=== PATIENT | male | born 1990 | race Caucasian/White ===

== ENCOUNTER 2019-12-11 10:41 | Emergency (ER) | payer MEDICAID ==
[~2019-12-11] VITALS: Ht 185.4 cm; Wt 81.0 kg
[~2019-12-11 10:41] MED LIST: ARIP15TA8 PO; HYDR-3686 PO; NICO-668 BC; NICO-687 TD; NO HOME MEDS
[2019-12-11 12:42] LABS: CLARITY,URINE CLOUDY (Clear); COLOR,URINE YELLOW (Yellow); GLUCOSE, URINE NEGATIVE (Neg); KETONES,URINE TRACE mg/dl (Neg); LEUKOCYTE ESTERASE ,URINE NEGATIVE (Neg); NITRITES, URINE NEGATIVE (Neg); OCCULT BLOOD,URINE TRACE-INTACT (Neg); PROTEIN,URINE TRACE mg/dl (Neg)
[2019-12-11 12:42] LABS: BASOPHILS # (AUTO) 0.1 X10'3 (0-0.2); EOSINOPHILS # (AUTO) 0.1 X10'3 (0-0.9); MEAN PLATELET VOLUME 7.2 FL (7.4-10.4)
[2019-12-11 12:43] LABS: BASOPHILS % (AUTO) 1.1 % (0-1); EOSINOPHILS % (AUTO) 0.9 % (0-6); HEMATOCRIT 43.5 % (42.0-52.0); HEMOGLOBIN 14.4 g/dl (14.0-17.9); LYMPHOCYTES # (AUTO) 3.3 X10'3 (1.1-4.8); LYMPHOCYTES % (AUTO) 27.6 % (21-51); MEAN CORPUSCULAR HGB CONC 33.1 g/dL (33.0-36.5); MEAN CORPUSCULAR VOLUME 93.7 FL (78-98); MONOCYTES # (AUTO) 0.6 X10'3 (0-0.9); MONOCYTES % (AUTO) 4.6 % (2-12); NEUTROPHILS # (AUTO) 7.9 X10'3 (1.8-7.7); NEUTROPHILS % (AUTO) 65.8 % (42-75); PLATELET COUNT 348 X10'3 (140-440); RED BLOOD COUNT 4.65 X10'6 (4.70-6.10)
[2019-12-11 12:52] LABS: UA COLLECTION TYPE VOIDED
[2019-12-11 12:55] LABS: URINE AMPHETAMINE SCREEN NEGATIVE (Neg); URINE BARBITUATE SCREEN NEGATIVE (Neg); URINE BENZODIAZEPINES SCREEN NEGATIVE (Neg); URINE CANNABINOID SCREEN POSITIVE (Neg); URINE COCAINE SCREEN NEGATIVE (Neg); URINE METHADONE SCREEN NEGATIVE (Neg); URINE OPIATE SCREEN NEGATIVE (Neg); URINE PHENCYCLIDINE SCREEN NEGATIVE (Neg)
[2019-12-11 12:58] LABS: ALANINE AMINOTRANSFERASE 97 U/L (12-78); ALBUMIN/GLOBULIN RATIO 1.3 (1.1-1.5); ALKALINE PHOSPHATASE 67 IU/L (46-116); ANION GAP 6 (8-16); ASPARTATE AMINO TRANSFERASE 42 U/L (10-37); BLOOD UREA NITROGEN 13 MG/DL (7-18); BUN/CREATININE RATIO 11.5 (5.4-32.0); CALCIUM 8.8 MG/DL (8.5-10.1); CHLORIDE 108 MMOL/L (99-107); CREATININE 1.13 MG/DL (0.60-1.10); GLUCOSE 124 MG/DL (70-104); POTASSIUM 3.8 MMOL/L (3.5-5.1); SODIUM 142 MMOL/L (135-145); TOTAL CARBON DIOXIDE 28.2 MMOL/L (24-32); eGFR 77 ML/MIN
[2019-12-11 13:03] LABS: AMORPHOUS PHOSPHATES 3+; BACTERIA,URINE NONE SEEN /HPF (Neg); MUCUS STRANDS FEW /LPF (Neg); SQUAMOUS EPITHELIAL CELL,UR FEW /LPF (FEW); WBC,URINE 0-4 /HPF (0-4)
[2019-12-11 13:05] LABS: ETHANOL < 0.010 GM/DL (0.0-0.010)
--- NOTE | 2019-12-11 14:10 | NUR ---
PACKET FAXED TO [facility].
--- NOTE | 2019-12-11 14:19 | NUR ---
PT AWAKE AND COLORING NO NEEDS AT THIS TIME
[2019-12-11] MEDS ORDERED: NICO-687 TD (15:52)
[2019-12-11] MEDS ORDERED: NICO-668 MM (15:52)
[2019-12-11] MEDS ORDERED: ARIP15TA8 PO (15:52)
[2019-12-11] MEDS ORDERED: HYDR-3686 PO (15:52)
--- NOTE | 2019-12-11 16:00 | NUR ---
PT REQUESTING HIS ANXIETY MEDS. PT STATED FIDELINA THE WAS NOT TAKING ANY HOME MEDS. PT STATES HE WAS TAKING XANAX THAT WAS FILLED AT [facility] IN [place]. PER [facility] PT HAS NOT HAD ANY RX FILLED. PT INFORMED OF THIS HE THEN STATED WHEN HE WAS UPSTAIRS HE WAS ON "XANAX OR MAYBE ATIVAN" INQUIRED TO WHEN HE WAS UPSTAIRS HIS LAST VISIT WAS 2016. PT STATES HE WAS DC FROM [facility] [place] [facility] 2 DAYS AGO. PT STATES HE WAS TRANSFERED FROM [facility] TO [facility]. PT STATES HE HAS NOT TAKEN ANY MEDS SINCE BEING DCD AND DID NOT GET ANY MEDS FILLED. CALLED [facility] AND THEY DO NOT HAVE A RECORD OF HIS DC MEDS. ABLE TO GET LIST FROM PHARM. CORRECT MED REC SIGNED BY DR COLORADO AND FAXED TO PHARM.
--- NOTE | 2019-12-11 16:11 | NUR ---
PER [facility] PT HAD ABILIFY 400MG INJECTION 12/05 AND WAS PUT IN 15MG PO X 2 WEEKS.
--- NOTE | 2019-12-11 16:26 | NUR ---
CONCEPCION FROM [facility] AT [facility]
[2019-12-11] MEDS ORDERED: acetaminophen 325mg tablet PO ONE (17:40)
[2019-12-11] MEDS: hydrOXYzine 25 MG tablet PO PRN (17:55)
--- NOTE | 2019-12-11 18:30 | NUR ---
Pt sat up to eat dinner. No s/s of distress noted
--- NOTE | 2019-12-11 19:30 | NUR ---
Pt appears to be resting comfortably. No apparent s/s of distress noted
--- NOTE | 2019-12-11 20:17 | NUR ---
Pt appears to be resting comfortably. No apparent s/s of distress noted
--- NOTE | 2019-12-11 21:15 | NUR ---
Pt appears to be resting comfortably. No apparent s/s of distress
--- NOTE | 2019-12-11 22:10 | NUR ---
Pt appears to be resting comfortably. No apparent s/s of distress
--- NOTE | 2019-12-11 23:05 | NUR ---
Pt appears to be resting comfortably. No apparent s/s of distress
--- NOTE | 2019-12-12 | NUR ---
Received report and assumed pt care. Pt resting quietly, respirations normal, s/s of distress.
--- NOTE | 2019-12-12 01:00 | NUR ---
Pt resting quietly, respirations normal, s/s of distress.
--- NOTE | 2019-12-12 02:41 | NUR ---
Pt resting quietly, respirations normal, s/s of distress.
--- NOTE | 2019-12-12 03:30 | NUR ---
Pt resting quietly, respirations normal, s/s of distress.
--- NOTE | 2019-12-12 04:29 | NUR ---
Pt resting quietly, respirations normal, s/s of distress.
[2019-12-12 05:38] VITALS: BP 110/68
[2019-12-12] MEDS: hydrOXYzine 25 MG tablet PO PRN ×2 (06:36→10:58)
[2019-12-12] MEDS ORDERED: ARIPIPRAZOLE 15 MG TABLET PO SCH (08:00)
[2019-12-12] MEDS ORDERED: nicotine 21mg patch - 24 hr TD SCH (08:00)
--- NOTE | 2019-12-12 11:20 | NUR ---
Krystin from [facility] inpatient facility called and patient is being acceoted to facility by Dr. Serrano. [phone]
[2019-12-12] MEDS ORDERED: acetaminophen 325mg tablet PO ONE (13:30)
== END 2019-12-12 14:24 ==
LOC: ER 10:42
DX: R45.851 Suicidal ideations (principal); J45.909 Unspecified asthma, uncomplicated; F41.9 Anxiety disorder, unspecified; F15.90 Other stimulant use, unspecified, uncomplicated; Z98.890 Other specified postprocedural states; Z88.0 Allergy status to penicillin; Z88.6 Allergy status to analgesic agent
CPT/HCPCS: 36415; 80053; 80305; 80320; 81001; 84443; 85025; 99285; Q0177

== ENCOUNTER 2019-12-29 15:46 | Emergency (ER) | payer MEDICAID ==
[~2019-12-29] VITALS: Ht 185.4 cm; Wt 91.3 kg
[~2019-12-29 15:46] MED LIST changes: -NICO-668 BC; +NICO-668 MM; -NO HOME MEDS
[2019-12-29 16:16] VITALS: BP 133/70
[2019-12-29 17:57] LABS: BASOPHILS # (AUTO) 0.2 X10'3 (0-0.2); BASOPHILS % (AUTO) 1.2 % (0-1); EOSINOPHILS # (AUTO) 0.3 X10'3 (0-0.9); EOSINOPHILS % (AUTO) 2.1 % (0-6); HEMATOCRIT 44.2 % (42.0-52.0); HEMOGLOBIN 14.6 g/dl (14.0-17.9); LYMPHOCYTES # (AUTO) 2.9 X10'3 (1.1-4.8); LYMPHOCYTES % (AUTO) 22.3 % (21-51); MEAN CORPUSCULAR HEMOGLOBIN 31.7 PG (27.0-31.0); MEAN CORPUSCULAR HGB CONC 33.1 g/dL (33.0-36.5); MEAN CORPUSCULAR VOLUME 95.9 FL (78-98); MEAN PLATELET VOLUME 7.6 FL (7.4-10.4); MONOCYTES # (AUTO) 1.4 X10'3 (0-0.9); MONOCYTES % (AUTO) 10.3 % (2-12); NEUTROPHILS # (AUTO) 8.4 X10'3 (1.8-7.7); NEUTROPHILS % (AUTO) 64.1 % (42-75); PLATELET COUNT 387 X10'3 (140-440); RED BLOOD COUNT 4.61 X10'6 (4.70-6.10); RED CELL DISTRIBUTION WIDTH 15.3 % (11.5-14.5); WHITE BLOOD COUNT 13.2 X10'3 (4.5-11.0)
[2019-12-29 18:32] LABS: ALANINE AMINOTRANSFERASE 123 U/L (12-78); ALBUMIN 3.9 G/DL (3.4-5.0); ALBUMIN/GLOBULIN RATIO 1.1 (1.1-1.5); ALKALINE PHOSPHATASE 63 IU/L (46-116); ANION GAP 8 (8-16); ASPARTATE AMINO TRANSFERASE 51 U/L (10-37); BILIRUBIN,TOTAL 0.4 MG/DL (0.1-1.0); BLOOD UREA NITROGEN 8 MG/DL (7-18); BUN/CREATININE RATIO 9.6 (5.4-32.0); CHLORIDE 100 MMOL/L (99-107); CREATININE 0.83 MG/DL (0.60-1.10); GLUCOSE 114 MG/DL (70-104); POTASSIUM 4.1 MMOL/L (3.5-5.1); SODIUM 139 MMOL/L (135-145); TOTAL CARBON DIOXIDE 31.3 MMOL/L (24-32); TOTAL PROTEIN 7.4 G/DL (6.4-8.2); eGFR > 90 ML/MIN
== END 2019-12-29 18:31 | disposition home or self-care (01) ==
LOC: ER 15:46
DX: R11.0 Nausea (principal); T42.6X5A Adverse effect of other antiepileptic and sedative-hypnotic drugs, initial encounter; R68.83 Chills (without fever); R19.7 Diarrhea, unspecified; Z20.828 Contact with and (suspected) exposure to other viral communicable diseases; J45.909 Unspecified asthma, uncomplicated; F15.90 Other stimulant use, unspecified, uncomplicated; F41.9 Anxiety disorder, unspecified; Z98.890 Other specified postprocedural states; Z88.0 Allergy status to penicillin; Z88.6 Allergy status to analgesic agent; Z79.899 Other long term (current) drug therapy; Y92.89 Other specified places as the place of occurrence of the external cause
CPT/HCPCS: 36415; 80053; 85025; 87635; 99283

== ENCOUNTER 2020-04-30 08:18 | Emergency (ER) | payer MEDICAID ==
[~2020-04-30] VITALS: Ht 185.4 cm; Wt 92.3 kg
[2020-04-30] MEDS ORDERED: hydrOXYzine 25 MG tablet PO ONE ×2 (09:20→15:35)
[2020-04-30 09:37] LABS: BASOPHILS # (AUTO) 0.1 X10'3 (0-0.2); BASOPHILS % (AUTO) 0.5 % (0-1); EOSINOPHILS # (AUTO) 0.1 X10'3 (0-0.9); EOSINOPHILS % (AUTO) 0.5 % (0-6); HEMATOCRIT 45.2 % (42.0-52.0); HEMOGLOBIN 15.1 g/dl (14.0-17.9); LYMPHOCYTES # (AUTO) 2.1 X10'3 (1.1-4.8); LYMPHOCYTES % (AUTO) 20.4 % (21-51); MEAN CORPUSCULAR HEMOGLOBIN 31.1 PG (27.0-31.0); MEAN CORPUSCULAR HGB CONC 33.4 g/dL (33.0-36.5); MONOCYTES # (AUTO) 0.6 X10'3 (0-0.9); MONOCYTES % (AUTO) 5.6 % (2-12); NEUTROPHILS # (AUTO) 7.4 X10'3 (1.8-7.7); PLATELET COUNT 416 X10'3 (140-440); RED BLOOD COUNT 4.86 X10'6 (4.70-6.10); RED CELL DISTRIBUTION WIDTH 14.2 % (11.5-14.5); WHITE BLOOD COUNT 10.2 X10'3 (4.5-11.0)
--- NOTE | 2020-04-30 09:40 | NUR ---
PT NOW STATING HE IS SUICIDAL, NOTIFY PROVIDER. PT CHANGED INTO GREEN GOWN, BELONGINGS LOGGED AND TAKEN OUT OF ROOM. BLOOD DRAWN AND URINE COLLECTED.
[2020-04-30 09:50] LABS: ALANINE AMINOTRANSFERASE 72 U/L (12-78); ALBUMIN 3.7 G/DL (3.4-5.0); ALBUMIN/GLOBULIN RATIO 1.1 (1.1-1.5); ALKALINE PHOSPHATASE 83 IU/L (46-116); ANION GAP 8 (8-16); ASPARTATE AMINO TRANSFERASE 27 U/L (10-37); BILIRUBIN,TOTAL 0.6 MG/DL (0.1-1.0); BLOOD UREA NITROGEN 7 MG/DL (7-18); BUN/CREATININE RATIO 7.7 (5.4-32.0); CHLORIDE 107 MMOL/L (99-107); CREATININE 0.91 MG/DL (0.60-1.10); GLUCOSE 119 MG/DL (70-104); POTASSIUM 4.2 MMOL/L (3.5-5.1); SODIUM 142 MMOL/L (135-145); TOTAL CARBON DIOXIDE 26.9 MMOL/L (24-32); TOTAL PROTEIN 7.1 G/DL (6.4-8.2); eGFR > 90 ML/MIN
[2020-04-30 10:03] LABS: URINE AMPHETAMINE SCREEN NEGATIVE (Neg); URINE BARBITUATE SCREEN NEGATIVE (Neg); URINE BENZODIAZEPINES SCREEN NEGATIVE (Neg); URINE CANNABINOID SCREEN POSITIVE (Neg); URINE COCAINE SCREEN NEGATIVE (Neg); URINE METHADONE SCREEN NEGATIVE (Neg); URINE OPIATE SCREEN NEGATIVE (Neg); URINE PHENCYCLIDINE SCREEN NEGATIVE (Neg)
[2020-04-30] MEDS ORDERED: diphenhydrAMINE 50 mg/ml inj IM ONE (10:35)
[2020-04-30] MEDS ORDERED: ARIPIPRAZOLE 10 MG TABLET PO SCH (10:35)
[2020-04-30] MEDS ORDERED: ARIPIPRAZOLE 10 MG TABLET PO ONE (10:35)
--- NOTE | 2020-04-30 12:59 | NUR ---
PACKET SENT TO [facility] AT [facility].
--- NOTE | 2020-04-30 14:37 | NUR ---
PT MOVED FROM MAIN ED TO OVERFLOW BED 21. PT IS CALM AND COOPERATIVE. WILL CONT TO MONITOR.
[2020-04-30] MEDS ORDERED: DIVA500T2 PO (14:41)
[2020-04-30] MEDS ORDERED: PROP10TA10 PO (14:43)
--- NOTE | 2020-04-30 16:05 | NUR ---
PT NEEDING SOMETHING FOR ANXIETY, GIVEN ATARAX AND NOW PT IS SLEEPING AND DOES NOT LOOK TO BE IN ANY DISTRESS. WILL MONITOR.
--- NOTE | 2020-04-30 17:14 | NUR ---
PT CONTINUES TO REST IN BED WITH EYES CLOSED. PT DOES NOT SEEM TO BE IN ANY DISCOMFORT. WILL CONT TO MONITOR.
--- NOTE | 2020-04-30 19:00 | NUR ---
Pt resting quietly, respirations normal, no s/s of distress.
--- NOTE | 2020-04-30 20:00 | NUR ---
Pt resting quietly, respirations normal, no s/s of distress.
--- NOTE | 2020-04-30 21:00 | NUR ---
Pt resting quietly, respirations normal, no s/s of distress.
--- NOTE | 2020-04-30 23:00 | NUR ---
Pt resting quietly, respirations normal, no s/s of distress.
--- NOTE | 2020-05-01 01:09 | NUR ---
Pt resting quietly, respirations normal, no s/s of distress.
[2020-05-01 05:36] VITALS: BP 119/71
--- NOTE | 2020-05-01 06:26 | NUR ---
Patient sleeping on his right side. No distress observed. Continue to monitor.
[2020-05-01] MEDS ORDERED: hydrOXYzine 25 MG tablet PO PRN (06:50)
--- NOTE | 2020-05-01 08:05 | NUR ---
Patient eating breakfast. No distress observed. Continue to monitor.
[2020-05-01] MEDS ORDERED: CLON0.5T23 PO (08:51)
[2020-05-01] MEDS ORDERED: OLAN5TAB29 PO (08:51)
[2020-05-01] MEDS ORDERED: OLAN10TA19 PO (08:53)
--- NOTE | 2020-05-01 09:00 | NUR ---
Patient angry and punched the bed because he wants to see somebody and leave. [facility], was in the area and and evaluating patient. Continue to monitor.
[2020-05-01] MEDS ORDERED: PROP10TA10 PO (09:06)
[2020-05-01] MEDS ORDERED: ARIP15TA3 PO (09:06)
--- NOTE | 2020-05-01 09:10 | NUR ---
[facility], evaluating patient. Continue to monitor.
[2020-05-01] MEDS ORDERED: divalproex sodium 500mg tablet.DR PO SCH (09:28)
[2020-05-01] MEDS ORDERED: propranolol 10mg tablet PO SCH (09:28)
[2020-05-01] MEDS ORDERED: ARIPIPRAZOLE 15 MG TABLET PO SCH (21:00)
== END 2020-05-01 09:55 | disposition home or self-care (01) ==
LOC: ER 08:19
DX: R45.851 Suicidal ideations (principal); Z20.828 Contact with and (suspected) exposure to other viral communicable diseases; G25.71 Drug induced akathisia; J45.909 Unspecified asthma, uncomplicated; F41.9 Anxiety disorder, unspecified; F15.90 Other stimulant use, unspecified, uncomplicated; Z98.890 Other specified postprocedural states; Z88.0 Allergy status to penicillin; Z88.8 Allergy status to other drugs, medicaments and biological substances; Z79.899 Other long term (current) drug therapy
CPT/HCPCS: 36415; 80053; 80305; 85025; 87635; 96372; 99285; C9803; J1200; Q0177

== ENCOUNTER 2020-05-03 01:44 | Emergency (ER) | payer MEDICAID ==
[~2020-05-03 01:44] MED LIST changes: +ARIP15TA3 PO; -ARIP15TA8 PO; +DIVA500T2 PO; -HYDR-3686 PO; -NICO-668 MM; -NICO-687 TD; +PROP10TA10 PO
== END 2020-05-03 02:07 | disposition left against medical advice (07) ==
LOC: ER 01:45
DX: G47.00 Insomnia, unspecified (principal); Z53.21 Procedure and treatment not carried out due to patient leaving prior to being seen by health care provider

== ENCOUNTER 2021-07-20 09:50 | Inpatient (IN) | payer MEDICAID ==
[~2021-07-20] VITALS: Ht 188 cm; Wt 88.0 kg
[2021-07-20 19:50] VITALS: BP 129/93
[2021-07-20] MEDS ORDERED: quetiapine 100mg tablet PO PRN (21:10)
[2021-07-20] MEDS ORDERED: mag hydrox/Alum hydrox/simeth 30ml oral suspension PO PRN (21:25)
[2021-07-20] MEDS ORDERED: magnesium hydroxide 30ml (MOM) UD suspension PO PRN (21:25)
[2021-07-20] MEDS ORDERED: acetaminophen 325mg tablet PO PRN ×2 (21:25)
[2021-07-20] MEDS ORDERED: loperamide 2mg capsule PO PRN (21:25)
[2021-07-21] MEDS ORDERED: LORA2TAB96 PO (01:43)
[2021-07-21] MEDS ORDERED: QUET-1 PO (01:44)
[2021-07-21] MEDS ORDERED: ARIP400S3 IM (01:47)
--- NOTE | 2021-07-21 02:17 | NUR ---
EXECUTIVE RELATIONS SPECIALIST NOTE: LEGAL HOLD: 5150 for DTS REASON FOR ADMIT: Client reported suicidal ideation. Client reported that he wanted to hang himself. He has had two prior suicide attempts by hanging. The first attempt was at age 16 yo. The second attempt was at age 26 yo. Client has a hx of heroin abuse. Reported that he stopped 7 months ago. THIS SHIFT: Client is pleasant and cooperative. His affect is blunted and he is very depressed. Client showered, had snack, and was cooperative with admission. He arrived on the unit at 19:50 accompanied by Rosy Jones. Requested 100 mg Seroquel Tab PO and went to bed.
[2021-07-21 08:00] VITALS: BP 137/81
[2021-07-21 08:10] LABS: HEMOGLOBIN A1C 5.6 % (4.5-6.2)
[2021-07-21 08:18] LABS: CHOL/HDL RATIO 2.9 (0.00-4.99); CHOLESTEROL 123 MG/DL (0-200); HDL CHOLESTEROL 42 MG/DL (35-60); LDL CHOLESTEROL 91 MG/DL (50-100); TRIGLYCERIDES 28 MG/DL (20-135)
[2021-07-21] MEDS: LORazepam 1 MG tablet PO SCH ×2 (09:03→20:12)
[2021-07-21] MEDS: nicotine 21mg patch - 24 hr TD SCH (09:04)
--- NOTE | 2021-07-21 14:22 | NUR ---
Nursing Progress Note: Legal hold: 5150 Client on involuntary status for DTS/DTO Report received from nurse with use of SBAR: Jodi Sol RN Why are they here: Client reported suicidal ideation. Client reported that he wanted to hang himself. He has had two prior suicide attempts by hanging. The first attempt was at age 16 yo. The second attempt was at age 26 yo. Client has a hx of heroin abuse. Reported that he stopped 7 months ago. Assessment What has happened this shift: Received pt. sleeping in bed at the beginning of the shift, he was awoken to attend breakfast in the Group Room, and afterwards returned back to bed. Pt. continued to isolate here throughout the shift, getting up to attend meals only. 1:1 was completed at bedside, pt. presents as cooperative, fatigued, and guarded. He reports ongoing S/I, however denies any current plan. When questioned regarding A/V/MANNING, pt. states, "I see things that aren't there and they tell me to hurt myself." Pt. remained in bed throughout much of the shift, napping intermittently. He reports he takes Suboxone 8--2mg BID, and this was endorsed to Dr. Case who may continue this medication. S/I, H/I: Pt. reports ongoing S/I, however denies any plan A/VH: Pt. reports A/V/MANNING, and states, "I see things that aren't there and they tell me to hurt myself." Sleep: Sleep hours are 8.5, and pt. naps throughout much of the shift ADL's: Pt. requires some direction and encouragement Group attendance: No Were meds taken: Yes Any med S/E: None Mental Status Exam Appearance: Hair and clothing are disheveled r/t laying in bed Eye contact: Moderate Behavior: Cooperative, fatigued, guarded, and isolative Speech: Soft, responds to direct questions with a minimal response Mood: Guarded Affect: Constricted Thought process: Poverty of thought Thought Content: A/V/MANNING and depression Cognition: A&O X4 Insight: Poor Judgment: Poor Interventions PRN's used: None Therapeutic interventions: Introduced self and established rapport, maintained a safe and supportive environment, ensured contract for safety, provided clear and simple instructions, attempted to orient to reality, and maintained Q 15min safety checks. Restraints/seclusion/emergency medication: N/A Justification of Continued Inpatient Treatment: Pt. requires interruption of current crisis, medication adjustments, and a safe and supportive environment.
[2021-07-21 19:37] VITALS: BP 119/77
[2021-07-21] MEDS ORDERED: QUEtiapine 25mg tablet PO PRN (21:25)
--- NOTE | 2021-07-22 04:12 | NUR ---
Nursing Progress Note: Legal hold: 5150 Client on involuntary status for DTS/DTO Report received from nurse with use of SBAR: ZAIRA Thompson Why are they here: Client reported suicidal ideation. Client reported that he wanted to hang himself. He has had two prior suicide attempts by hanging. The first attempt was at age 16 yo. The second attempt was at age 26 yo. Client has a hx of heroin abuse. Reported that he stopped 7 months ago. Assessment What has happened this shift: Received pt. sleeping in bed at the beginning of the shift. Patient stayed in bed until nurse attempted to preform 1:1. Patient kept staring off into the distance and gave minimal responses. Patient didn't leave room until snack time. Patient didn't socialize with others and was observed sitting in corner of community room. Patient took night medications without issue and went back to bed. S/I, H/I: Pt. reports ongoing S/I, however denies any plan A/VH: Denies Sleep: See sleep assessment ADL's: Pt. requires some direction and encouragement Group attendance: No Were meds taken: Yes Any med S/E: None Mental Status Exam Appearance: Clean dressed in green unit scrubs Eye contact:Good Behavior: Cooperative, fatigued, guarded, and isolative Speech: Soft, responds to direct questions with a minimal response Mood: fatigued Affect: Constricted Thought process: Poverty of thought Thought Content: A/V/MANNING and depression Cognition: A&O X4 Insight: Poor Judgment: Poor Interventions PRN's used: None Therapeutic interventions: Introduced self and established rapport, maintained a safe and supportive environment, ensured contract for safety, provided clear and simple instructions, attempted to orient to reality, and maintained Q 15min safety checks. Restraints/seclusion/emergency medication: N/A Justification of Continued Inpatient Treatment: Pt. requires interruption of current crisis, medication adjustments, and a safe and supportive environment.
[2021-07-22 08:00] VITALS: BP 122/87
[2021-07-22] MEDS ORDERED: buPROPion 75mg tablet PO SCH (08:00)
[2021-07-22] MEDS: LORazepam 1 MG tablet PO SCH ×2 (08:53→19:47)
[2021-07-22] MEDS: nicotine 21mg patch - 24 hr TD SCH (08:54)
[2021-07-22] MEDS: buprenorphine/naloxone 2-0.5mg sublingual tablet SL SCH ×2 (08:54→19:47)
--- NOTE | 2021-07-22 14:58 | NUR ---
Nursing Progress Note: Legal hold: 5150 Client on involuntary status for DTS/DTO Report received from nurse with use of SBAR: Jodi Sol RN Why are they here: Client reported suicidal ideation. Client reported that he wanted to hang himself. He has had two prior suicide attempts by hanging. The first attempt was at age 16 yo. The second attempt was at age 26 yo. Client has a hx of heroin abuse. Reported that he stopped 7 months ago. Assessment What has happened this shift: Received pt. sleeping in bed at the beginning of the shift, he was awoken to attend breakfast in the Group Room, and again afterwards returned back to bed. Pt. continued to isolate here throughout the shift, getting up only to attend meals. 1:1 was completed at bedside, pt. presents as depressed, anxious, and hopeless. His eye contact is moderate, and he looks away in what appears to be a nervous manner at intervals. Pt. continues to respond minimally to direct questions only. He reports ongoing S/I with a plan to hang himself, however is able to contract for safety while on the unit. Pt. also reports ongoing command A/MANNING and V/H. When questioned further regarding these V/MANNING, pt. states, "I see people that aren't supposed to be there." This marine underwriter provided positive encouragement and encouraged pt. to participate on the unit, and he reported contentment. However, pt. continued to isolate, napping throughout the day. S/I, H/I: Pt. reports ongoing S/I with a plan to hang himself A/VH: Pt. reports ongoing A/V/MANNING and command A/MANNING Sleep: Sleep hours are 6.75, and pt. naps throughout much of the shift ADL's: Pt. requires some direction and encouragement Group attendance: No Were meds taken: Yes Any med S/E: None Mental Status Exam Appearance: Hair and clothing are disheveled r/t laying in bed Eye contact: Moderate, looks away nervously at frequent intervals Behavior: Cooperative, fatigued, guarded, hopeless, and isolative Speech: Soft, responds to direct questions with a minimal response Mood: Guarded Affect: Constricted Thought process: Poverty of thought Thought Content: A/V/MANNING and depression Cognition: A&O X4 Insight: Poor Judgment: Poor Interventions PRN's used: None Therapeutic interventions: Maintained a safe and supportive environment, ensured contract for safety, provided clear and simple instructions, attempted to orient to reality, encouraged participation on the unit and performance of ADLs, provided active listening and positive encouragement, and maintained Q 15min safety checks. Restraints/seclusion/emergency medication: N/A Justification of Continued Inpatient Treatment: Per Dr. Case, pt. continues to require medication adjustments and a safe and supportive environment.
[2021-07-22] MEDS: traZODone 50mg tablet PO SCH (19:47)
[2021-07-22 19:52] VITALS: BP 118/82
--- NOTE | 2021-07-23 02:29 | NUR ---
Nursing Progress Note: Legal hold: 5150 Client on involuntary status for DTS/DTO Report received from nurse with use of SBAR: ZAIRA Thompson Why are they here: Client reported suicidal ideation. Client reported that he wanted to hang himself. He has had two prior suicide attempts by hanging. The first attempt was at age 16 yo. The second attempt was at age 26 yo. Client has a hx of heroin abuse. Reported that he stopped 7 months ago. Assessment What has happened this shift: Received pt. sleeping in bed at the beginning of the shift. Woke pt up to give medications and pt agreeable to assessment. Pt denies S/I, H/I, A/VH. Pt will occasionally pace the hallways. Pt returned to room to sleep S/I, H/I: denies A/VH: denies Sleep: will tally at the end of shift ADL's: Pt. requires some direction and encouragement Group attendance: No Were meds taken: Yes Any med S/E: None Mental Status Exam Appearance: Hair and clothing are disheveled r/t laying in bed Eye contact: Moderate, looks away nervously at frequent intervals Behavior: Cooperative, fatigued, guarded, hopeless, and isolative Speech: Soft, responds to direct questions with a minimal response Mood: Guarded Affect: Constricted Thought process: Poverty of thought Thought Content: A/V/MANNING and depression Cognition: A&O X4 Insight: Poor Judgment: Poor Interventions PRN's used: None Therapeutic interventions: Maintained a safe and supportive environment, ensured contract for safety, provided clear and simple instructions, attempted to orient to reality, encouraged participation on the unit and performance of ADLs, provided active listening and positive encouragement, and maintained Q 15min safety checks. Restraints/seclusion/emergency medication: N/A Justification of Continued Inpatient Treatment: Per Dr. Case, pt. continues to require medication adjustments and a safe and supportive environment.
[2021-07-23] MEDS ORDERED: buprenorphine/naloxone 8mg/2mg SL tablet SL PRN (07:05)
[2021-07-23 07:29] VITALS: BP 115/59
[2021-07-23] MEDS: buPROPion 75mg tablet PO SCH ×2 (07:40→12:36)
[2021-07-23] MEDS: LORazepam 1 MG tablet PO SCH ×2 (07:41→20:21)
[2021-07-23] MEDS: nicotine 21mg patch - 24 hr TD SCH (08:00)
[2021-07-23] MEDS ORDERED: buprenorphine/naloxone 8MG-2MG SUBlingual film SL ONE (09:00)
--- NOTE | 2021-07-23 12:33 | NUR ---
Initial: Pt admitted w/ suicidal ideations per EMR. Currently on Regular diet w/ mostly 100% intake of meals meeting est nutrient needs at this time. LBM 07/22 w/ PRN bowel care available. No nutrition intervention implemented at this time, will continue to monitor. Recs: 1. Continue Regular diet as tolerated 2. Bowel care per rx 3. Weekly wts Addendum: 07/23/21 at [address] Amended: Links added.
--- NOTE | 2021-07-23 18:01 | NUR ---
Nursing Progress Note: Legal hold: 5150 Client on involuntary status for DTS/DTO Report received from nurse with use of SBAR: Jodi Sol RN Why are they here: Client reported suicidal ideation. Client reported that he wanted to hang himself. He has had two prior suicide attempts by hanging. The first attempt was at age 16 yo. The second attempt was at age 26 yo. Client has a hx of heroin abuse. Reported that he stopped 7 months ago. Assessment What has happened this shift: RN received pt. asleep in bed at start of shift. Pt. awoke for breakfast and took all medications and went back to sleep. 1:1 done at bedside, pt. reports some anxiety. Pt. reports hearing voices telling him to kill himself and seeing people talking to him who disappear. Pt. isolated to his room most of the day and napped, coming out of his room only to eat. S/I, H/I: Denies A/VH: Pt. Reports command hallucinations telling him to kill himself. Sleep: Sleep hours are 8, and pt. naps throughout much of the shift ADL's: Independent Group attendance: NA Were meds taken: Yes Any med S/E: Denies. None observed Mental Status Exam Appearance: Disheveled but clean. Wearing green scrubs. Eye contact: WNL Behavior: Cooperative, fatigued, guarded, and isolative Speech: WNL Mood: Anxious, depressed. Affect: Constricted Thought process: Poverty of thought. Thought Content: Circumstantial. Cognition: A&O X4 Insight: Poor Judgment: Poor Interventions PRN's used: None Therapeutic interventions: Maintained a safe and supportive environment, ensured contract for safety, provided clear and simple instructions, attempted to orient to reality, encouraged participation on the unit and performance of ADLs, provided active listening and positive encouragement, and maintained Q 15min safety checks. Restraints/seclusion/emergency medication: N/A Justification of Continued Inpatient Treatment: Per Dr. Case, pt. continues to require medication adjustments and a safe and supportive environment.
[2021-07-23] MEDS: traZODone 50mg tablet PO SCH (20:21)
[2021-07-23] MEDS: buprenorphine/naloxone 8MG-2MG SUBlingual film SL SCH (20:21)
[2021-07-23 20:42] VITALS: BP 113/76
--- NOTE | 2021-07-24 01:04 | NUR ---
Nursing Progress Note: Legal hold: 5250 Client on involuntary status for DTS/DTO Report received from NINA Castaneda with use of SBAR. Why are they here: Client reported suicidal ideation and that he wanted to hang himself. He has had two prior suicide attempts by hanging. The first attempt was at age 16 yo. The second attempt was at age 26 yo. Client has a hx of heroin abuse. Reported that he stopped 7 months ago. Assessment What has happened this shift: Received patient laying in bed on left side, in no apparent distress. Patient sat up and agreed to an assessment. Patient verbalized having visual/auditory hallucinations telling "kill yourself" but denies any S/I, H/I. Upon asking what he wants to do or what he feels like doing when he sees/hears the voices, patient said "just go back to sleep." Patient got up to get snacks around 2000 hours and returned to room to sleep. S/I, H/I: denies A/VH: sees a person outside the door that he knows is not there telling him to kill himself Sleep: will tally at the end of shift ADL's: independent; requires encouragement Group attendance: N/A Were meds taken: Yes Any med S/E: None Mental Status Exam Appearance: Tall, brown haired, disheveled looking young man due to staying in bed mostly with small tattoos on his arm Eye contact: Good Behavior: Cooperative, fatigued, guarded, withdrawn, and isolative Speech: Clear, soft Mood: Guarded Affect: Constricted Thought process: Linear Thought Content: A/V/MANNING and delusional Cognition: A&O X4 Insight: Poor Judgment: Poor Interventions PRN's used: None Therapeutic interventions: Maintained a safe and supportive environment, ensured contract for safety, provided clear and simple instructions, attempted to orient to reality, encouraged participation on the unit and performance of ADLs, provided active listening and positive encouragement, and maintained Q15 minute safety checks. Restraints/seclusion/emergency medication: N/A Justification of Continued Inpatient Treatment: Per Dr. Case, patient continues to require medication adjustments and a safe and supportive environment.
[2021-07-24 07:46] VITALS: BP 130/62
[2021-07-24] MEDS: buPROPion 75mg tablet PO SCH ×2 (07:46→13:05)
[2021-07-24] MEDS: LORazepam 1 MG tablet PO SCH ×2 (07:46→20:02)
[2021-07-24] MEDS: buprenorphine/naloxone 8MG-2MG SUBlingual film SL SCH ×2 (07:46→20:02)
[2021-07-24] MEDS: nicotine 21mg patch - 24 hr TD SCH (07:46)
--- NOTE | 2021-07-24 16:39 | NUR ---
Nursing Progress Note: Michael Legal hold: 5250 Client on involuntary status for DTS/DTO Report received from CRN with use of SBAR Why are they here: Client reported suicidal ideation. Client reported that he wanted to hang himself. He has had two prior suicide attempts by hanging. The first attempt was at age 16 y/o. The second attempt was at age 26 y/o. Client has a Hx of heroin abuse. Reported that he stopped 7 months ago. Assessment What has happened this shift: Pt. received sleeping, awoke to receive his medication and 1:1 assessment completed. Pt. reports he was admitted d/t wanting to kill myself, I was going to hang myself pt. endorses current SI with plan to hang himself, denies HI. He reports his plans are to go to rehab and endorsed heroin addiction. Pt. presents as depressed. Pt. ate his meals in the dining room with cohorts, but often sits alone in a chair. Pt. spent most of hei free time napping but was observed pacing the halls twice. He requested to shave, and also washed his face and independently initiated brushing his teeth. S/I: H/I: Endorses SI w/plan, denies HI A/VH: Denies Both Sleep: 7 hrs per NOC, 2hr nap ADL's: Independent Group attendance: NA Were meds taken: Yes Any med S/E: Denies. None observed Mental Status Exam Appearance: Disheveled male wearing green scrubs. Eye contact: Fair Behavior: Cooperative, fatigued, guarded Speech: Clear Mood: Anxious, depressed. Affect: Constricted Thought process: Poverty of thought. Thought Content: Circumstantial. Cognition: A&O X4 Insight: Poor Judgment: Poor Interventions PRN's used: None Therapeutic interventions: Maintained a safe and supportive environment, ensured contract for safety, provided clear and simple instructions, attempted to orient to reality, encouraged participation on the unit and performance of ADLs, provided active listening and positive encouragement, and maintained Q 15min safety checks. Restraints/seclusion/emergency medication: N/A Justification of Continued Inpatient Treatment: Per Dr. Case, pt. continues to require medication adjustments and a safe and supportive environment.
[2021-07-24 19:35] VITALS: BP 99/65
[2021-07-24] MEDS: traZODone 50mg tablet PO SCH ×2 (20:02→20:37)
--- NOTE | 2021-07-25 01:42 | NUR ---
Nursing Progress Note: Legal hold: 5250 Client on involuntary status for DTS/DTO Report received from Olegario WOOD with use of SBAR Why are they here: Client reported suicidal ideation. Client reported that he wanted to hang himself. He has had two prior suicide attempts by hanging. The first attempt at age 16 y/o. The second attempt at age 26 y/o. Client has a Hx of heroin abuse. Reported that he stopped 7 months ago. Assessment What has happened this shift: Pt up on unit at start of shift. Watching TV and pacing in halls at times. Ate snack in group room interacts appropriately with staff and other pts. He took meds pleasant and cooperative with care. S/I: H/I: Endorses SI w/plan, denies HI A/VH: Denies Both Sleep: Asleep at this time ADL's: Independent Group attendance: NA Were meds taken: Yes Any med S/E: Denies. None observed Mental Status Exam Appearance: Disheveled male wearing green scrubs. Eye contact: Fair Behavior: Cooperative, fatigued, guarded Speech: Clear Mood: Anxious, depressed. Affect: Constricted Thought process: linear Thought Content: Circumstantial. Cognition: A&O X4 Insight: Poor Judgment: Poor Interventions PRN's used: None Therapeutic interventions: Maintained a safe and supportive environment, ensured contract for safety, provided clear and simple instructions, attempted to orient to reality, encouraged participation on the unit and performance of ADLs, provided active listening and positive encouragement, and maintained Q 15min safety checks. Restraints/seclusion/emergency medication: N/A Justification of Continued Inpatient Treatment: Per Dr. Case, pt. continues to require medication adjustments and a safe and supportive environment.
[2021-07-25] MEDS ORDERED: buPROPion 75mg tablet PO SCH (07:30)
[2021-07-25 07:47] VITALS: BP 125/81
[2021-07-25] MEDS: buPROPion 100mg tablet PO SCH ×2 (07:48→12:43)
[2021-07-25] MEDS: LORazepam 1 MG tablet PO SCH ×2 (07:48→20:01)
[2021-07-25] MEDS: buprenorphine/naloxone 8MG-2MG SUBlingual film SL SCH ×2 (07:48→20:00)
[2021-07-25] MEDS: nicotine 21mg patch - 24 hr TD SCH (07:50)
[2021-07-25] MEDS ORDERED: hydrOXYzine 25 MG tablet PO PRN (13:05)
[2021-07-25] MEDS ORDERED: hydrOXYzine 25 MG tablet PO ONE (13:05)
--- NOTE | 2021-07-25 13:59 | NUR ---
Nursing Progress Note: Legal hold: 5250 Client on involuntary status for DTS/DTO Report received from nurse Carolin MENESES with use of SBAR. Why are they here: Client reported suicidal ideation. Client reported that he wanted to hang himself. He has had two prior suicide attempts by hanging. The first attempt was at age 16 yo. The second attempt was at age 26 yo. Client has a hx of heroin abuse. Reported that he stopped 7 months ago. Assessment What has happened this shift: Pt was up before breakfast pacing the hallway. Pt's Wellbutrin was increased to 100 mg BIDBL today. Pt reports that he is depressed with passive SI. Pt contracts for safety here. Pt states he hears CAH to kill himself and has VH of "people not there." After lunch pt reported, "I'm having some really bad anxiety." Pt asked if he could have an Ativan. Pt did not have any PRN meds ordered for anxiety. Dr Case ordered a one time dose of Atarax 25 mg given at 1312 with good effect. He also ordered Ativan 25 mg PO Q6H PRN anxiety. S/I, H/I: +SI A/VH: +CAH, +VH Sleep: Pt slept 8.25 hours per noc shift report. ADL's: Independent Group attendance: No Were meds taken: Yes Any med S/E: None noted or reported. Mental Status Exam Appearance: Tall, younger appearing man with dark hair. Eye contact: Good. Behavior: Pleasant, cooperative, Speech: Clear,audible, normal rate and rhythm. Mood: Anxious Affect: Anxious Thought process: Linear Thought Content: He is really anxious. Cognition: A&O X4 Insight: Poor Judgment: Poor Interventions PRN's used: None Therapeutic interventions: 1:1 assessment, establishment of rapport, therapeutic communication, active listening, ensured contract for safety, medication administration/education/monitoring, encouragement to attend groups, provided distraction, direction, positive reinforcement, and maintained Q15 minute safety checks. Restraints/seclusion/emergency medication: N/A Justification of Continued Inpatient Treatment: Per Dr. Case, pt. continues to require medication adjustments and a safe and supportive environment.
[2021-07-25 19:39] VITALS: BP 124/72
[2021-07-25] MEDS: traZODone 50mg tablet PO SCH ×2 (20:00→21:18)
--- NOTE | 2021-07-25 20:24 | NUR ---
Nursing Progress Note: Legal hold: 5250 Client on involuntary status for DTS/DTO Report received from nurse Tonya MENESES with use of SBAR. Why are they here: Client reported suicidal ideation. Client reported that he wanted to hang himself. He has had two prior suicide attempts by hanging. The first attempt was at age 16 yo. The second attempt was at age 26 yo. Client has a hx of heroin abuse. Reported that he stopped 7 months ago. Assessment What has happened this shift: Pt was walking in the hallway at change of shift. He states he found out he is going to have housing so he is happy about that. Pt continues to report AH and states "i dont know what they're saying right now." Pt appears to be RIS during the evening. Pt spent time watching tv, and walking in the poon, took HS meds and went to bed. S/I, H/I: Passive SI A/VH: +VH and RIS Sleep: see sleep hours ADL's: Independent Group attendance: No Were meds taken: Yes Any med S/E: None noted or reported. Mental Status Exam Appearance: Tall, younger appearing man with dark hair. Eye contact: Good. Behavior: Pleasant, cooperative, Speech: Clear,audible, normal rate and rhythm. Mood: Anxious Affect: Anxious Thought process: Linear Thought Content: Housing Cognition: A&O X4 Insight: Poor Judgment: Poor Interventions PRN's used: None Therapeutic interventions: 1:1 assessment, establishment of rapport, therapeutic communication, active listening, ensured contract for safety, medication administration/education/monitoring, encouragement to attend groups, provided distraction, direction, positive reinforcement, and maintained Q15 minute safety checks. Restraints/seclusion/emergency medication: N/A Justification of Continued Inpatient Treatment: Per Dr. Case, pt. continues to require medication adjustments and a safe and supportive environment.
[2021-07-26 07:36] VITALS: BP 105/47
[2021-07-26] MEDS: buPROPion 100mg tablet PO SCH ×2 (07:46→12:45)
[2021-07-26] MEDS: buprenorphine/naloxone 8MG-2MG SUBlingual film SL SCH ×2 (07:46→20:03)
[2021-07-26] MEDS: LORazepam 1 MG tablet PO SCH ×2 (07:46→20:03)
[2021-07-26] MEDS: nicotine 21mg patch - 24 hr TD SCH (07:49)
--- NOTE | 2021-07-26 13:47 | NUR ---
Nursing Progress Note: Legal hold: 5250 Client on involuntary status for DTS/DTO Report received from nurse Carolin MENESES with use of SBAR. Why are they here: Client reported suicidal ideation. Client reported that he wanted to hang himself. He has had two prior suicide attempts by hanging. The first attempt was at age 16 yo. The second attempt was at age 26 yo. Client has a hx of heroin abuse. Reported that he stopped 7 months ago. Assessment What has happened this shift: Pt was up before breakfast. Pt was cooperative with medications. Pt reported CAH to hang himself today as well as VH of people not there telling him to hang himself. Pt reports SI with a plan to hang himself. Pt contracts for safety here. Pt napped for much of the morning today. S/I, H/I: +SI plan to hang himself A/VH: +CAH, +VH Sleep: Pt slept 7.5 hours per noc shift report, pt napped for much of the morning. ADL's: Independent Group attendance: No Were meds taken: Yes Any med S/E: None noted or reported. Mental Status Exam Appearance: Tall, younger appearing man with dark hair. Eye contact: Good. Behavior: Pleasant, cooperative, mostly isolative to self. Speech: Clear,audible, normal rate and rhythm. Mood: Depressed Affect: Depressed Thought process: Linear Thought Content: The voices are the problem, they cause him to feel suicidal. Cognition: A&O X4 Insight: Poor Judgment: Poor Interventions PRN's used: None Therapeutic interventions: 1:1 assessment, establishment of rapport, therapeutic communication, active listening, ensured contract for safety, medication administration/education/monitoring, encouragement to attend groups, provided distraction, direction, positive reinforcement, and maintained Q15 minute safety checks. Restraints/seclusion/emergency medication: N/A Justification of Continued Inpatient Treatment: Per Dr. Case, pt. continues to require medication adjustments and a safe and supportive environment.
[2021-07-26] MEDS ORDERED: traZODone 50mg tablet PO PRN (14:45)
[2021-07-26] MEDS ORDERED: PALIPERIDONE 3 MG TAB.ER.24 PO ONE (14:45)
--- NOTE | 2021-07-26 15:32 | NUR ---
Pt was given a one time dose of Paliperidone 3 mg at 1445. He has a new order for Paliperidone 6 mg PO daily to start tomorrow. Pt's routine Ativan 2 mg times were changed to 1200 & 2000, his PRN Atarax was increased to 50 mg PO Q6H, his Trazodone was increased to 100 mg PO HS scheduled and 50 mg HS PRN.
--- NOTE | 2021-07-26 16:48 | NUR ---
Met w/pt engaged him in pr-dcp activities. Pt continues to endorse AH telling him to hurt himself but expressed a desire to find a sober living facility to go to upon d/c, pt has no income at this time. Pt informed clinician that he does not plan to rt to [facility] as there are no services there. Provided info re [facility], pt agreed to a referral, completed an on-prema referral with pt and submitted it to the [facility]. Explain need for pt to have [facility] in order to access outpatient services, pt asked to [facility], provided contact info for both [facility] & [facility] so pt can contact them on his own. Plan: will continue to check in w/pt re transfer of [employer] benefits & interest in [facility] services. Clinician to f/u w/[facility] re pt's referral. Meli Iyer LCSW Addendum: 07/26/21 at 1653 by Meli Iyer SS Amended: Links added.
[2021-07-26] MEDS: NICOTINE POLACRILEX 2 MG LOZENGE BC PRN (17:04)
[2021-07-26 19:08] VITALS: BP 101/60
[2021-07-26] MEDS: traZODone 50mg tablet PO SCH (20:03)
--- NOTE | 2021-07-26 21:26 | NUR ---
Nursing Progress Note: Legal hold: 5250 Client on involuntary status for DTS/DTO Report received from nurse Tonya MENESES with use of SBAR. Why are they here: Client reported suicidal ideation. Client reported that he wanted to hang himself. He has had two prior suicide attempts by hanging. The first attempt was at age 16 yo. The second attempt was at age 26 yo. Client has a hx of heroin abuse. Reported that he stopped 7 months ago. Assessment What has happened this shift: Pt up walking on the unit at change of shift. He is pleasant and cooperative continues to endorse CAH to hang himself. Pt states he doesnt plan on doing this here, he just thinks about it. Pt isolates to himself walking in the poon smiling and appears to be RIS. Pt takes meds at HS med pass and had a snack before going to bed. S/I, H/I: +SI plan to hang himself A/VH: +CAH, +VH Sleep:see sleep hours ADL's: Independent Group attendance: No Were meds taken: Yes Any med S/E: None noted or reported. Mental Status Exam Appearance: Tall, younger appearing man with dark hair. Eye contact: Good. Behavior: Pleasant, cooperative, mostly isolative to self. Speech: Clear,audible, normal rate and rhythm. Mood: Depressed Affect: Depressed Thought process: Linear Thought Content: The voices are the problem, they cause him to feel suicidal. Cognition: A&O X4 Insight: Poor Judgment: Poor Interventions PRN's used: None Therapeutic interventions: 1:1 assessment, establishment of rapport, therapeutic communication, active listening, ensured contract for safety, medication administration/education/monitoring, encouragement to attend groups, provided distraction, direction, positive reinforcement, and maintained Q15 minute safety checks. Restraints/seclusion/emergency medication: N/A Justification of Continued Inpatient Treatment: Per Dr. Case, pt. continues to require medication adjustments and a safe and supportive environment.
[2021-07-27] MEDS: PALIPERIDONE 3 MG TAB.ER.24 PO SCH (07:18)
[2021-07-27] MEDS: buPROPion 100mg tablet PO SCH ×2 (07:18→12:34)
[2021-07-27] MEDS: buprenorphine/naloxone 8MG-2MG SUBlingual film SL SCH ×2 (07:19→19:27)
[2021-07-27] MEDS: nicotine 21mg patch - 24 hr TD SCH (07:23)
[2021-07-27 08:00] VITALS: BP 98/50
--- NOTE | 2021-07-27 09:06 | NUR ---
Spoke to Sven with [facility] (ph# [phone]). He reported Michael can change his Medi-luke upon discharge if he does stay in [facility] and go to the [facility]. Sven reported they will still schedule follow up even if Michael discharges to the [place]. MERCEDEZ Saravia
[2021-07-27] MEDS: LORazepam 1 MG tablet PO SCH ×2 (11:47→19:27)
--- NOTE | 2021-07-27 13:24 | NUR ---
Nursing Progress Note: Legal hold: 5250 Client on involuntary status for DTS/DTO Report received from nurse Carolin MENESES with use of SBAR. Why are they here: Client reported suicidal ideation. Client reported that he wanted to hang himself. He has had two prior suicide attempts by hanging. The first attempt was at age 16 yo. The second attempt was at age 26 yo. Client has a hx of heroin abuse. Reported that he stopped 7 months ago. Assessment What has happened this shift: Pt was up pacing in the hallway before breakfast. Pt appears anxious and internally preoccupied. Pt continues to report VH and CAH to kill himself and SI with a plan to hang himself. Pt contracts for safety here. Pt is mostly isolative to self. A referral has been sent to [facility] [employer] [facility]. S/I, H/I: +SI plan to hang himself A/VH: +CAH, +VH Sleep: Pt slept 7.5 hours per noc shift report, pt napped for much of the morning. ADL's: Independent Group attendance: No Were meds taken: Yes Any med S/E: None noted or reported. Mental Status Exam Appearance: Tall, younger appearing man with dark hair. Eye contact: Good. Behavior: Restless, isolative to self, paces in the hallway. Speech: Clear,audible, normal rate and rhythm. Mood: Anxious, depressed. Affect: Restless, anxious Thought process: Internally preoccupied. Thought Content: The CAH are bothering him, pt has not noticed any improvement as of yet from the medications. Cognition: A&O X4 Insight: Poor Judgment: Poor Interventions PRN's used: None Therapeutic interventions: 1:1 assessment, establishment of rapport, therapeutic communication, active listening, ensured contract for safety, medication administration/education/monitoring, encouragement to attend groups, provided distraction, direction, positive reinforcement, and maintained Q15 minute safety checks. Restraints/seclusion/emergency medication: N/A Justification of Continued Inpatient Treatment: Pt continues to report SI as well as VH and CAH. Pt was started on Paliperidone yesterday. Pt needs further medication adjustment and management in a safe and therapeutic environment until stable and no longer a danger to himself or others. Pt is interested in going to rehab and a referral has been sent to [facility].
[2021-07-27 19:32] VITALS: BP 107/72
[2021-07-27] MEDS: traZODone 50mg tablet PO SCH (20:11)
--- NOTE | 2021-07-28 04:17 | NUR ---
Nursing Progress Note: Legal hold: 5250 Client on involuntary status for DTS/DTO Report received from nurse Jay MENESES with use of SBAR. Why are they here: Client reported suicidal ideation. Client reported that he wanted to hang himself. He has had two prior suicide attempts by hanging. The first attempt was at age 16 yo. The second attempt was at age 26 yo. Client has a hx of heroin abuse. Reported that he stopped 7 months ago. Assessment What has happened this shift: Patient was observed pacing around unit and appears to be responding to internal stimuli. Patient stayed to him self and was found sitting in rec room staring at the wall. Patient began to complain about not feeling well and requested medications early so he can go to bed. Patient took all night medications and was then found hugging another patient in the hallway. Patient participated in snack and returned to pacing hallways. S/I, H/I: Denies A/VH: +AH Sleep: See sleep assessment ADL's: Independent Group attendance: No Were meds taken: Yes Any med S/E: None noted or reported. Mental Status Exam Appearance: Tall, younger appearing man with dark hair dressed in green unit scrubs Eye contact: Good. Behavior: Restless, paces in the hallway. Speech: Clear,audible, normal rate and rhythm. Mood: Anxious, depressed. Affect: Restless, anxious Thought process: Internally preoccupied. Thought Content: Patient stats not feeling well Cognition: A&O X4 Insight: Poor Judgment: Poor Interventions PRN's used: None Therapeutic interventions: 1:1 assessment, establishment of rapport, therapeutic communication, active listening, ensured contract for safety, medication administration/education/monitoring, encouragement to attend groups, provided distraction, direction, positive reinforcement, and maintained Q15 minute safety checks. Restraints/seclusion/emergency medication: N/A Justification of Continued Inpatient Treatment: Pt continues to report SI as well as VH and CAH. Pt was started on Paliperidone yesterday. Pt needs further medication adjustment and management in a safe and therapeutic environment until stable and no longer a danger to himself or others. Pt is interested in going to rehab and a referral has been sent to [facility].
[2021-07-28 07:18] VITALS: BP 106/76
[2021-07-28] MEDS: nicotine 21mg patch - 24 hr TD SCH (08:03)
[2021-07-28] MEDS: buPROPion 100mg tablet PO SCH ×2 (08:03→11:59)
[2021-07-28] MEDS: PALIPERIDONE 3 MG TAB.ER.24 PO SCH (08:03)
[2021-07-28] MEDS: buprenorphine/naloxone 8MG-2MG SUBlingual film SL SCH ×2 (08:04→19:05)
[2021-07-28] MEDS: hydrOXYzine 25 MG tablet PO PRN (10:33)
--- NOTE | 2021-07-28 11:39 | NUR ---
Nursing Progress Note: Legal hold: 5250 Client on involuntary status for DTS/DTO Report received from nurse with use of SBAR: Jodi Sol RN Why are they here: Client reported suicidal ideation. Client reported that he wanted to hang himself. He has had two prior suicide attempts by hanging. The first attempt was at age 16 yo. The second attempt was at age 26 yo. Client has a hx of heroin abuse. Reported that he stopped 7 months ago. Assessment What has happened this shift: Received pt. sleeping in bed at the beginning of the shift, he awoke and began restlessly pacing the unit. Pt. attended breakfast in the Group Room with direction from staff and afterwards approached this technical report writer requesting AM medications. He continues to present as guarded and intense at times, but is more forthcoming with conversation than previously noted. Pt. continues to report ongoing S/I with a plan to hang himself. However, he does report decreased anxiety and depression. Pt. also reports ongoing command A/MANNING and V/MANNING of "People." He is hoping that the medications will begin to take effect and states, "I'm getting really tired of them" (referring to ongoing A/V/MANNING). Pt. also reports he is hopeful that he will be able to attend rehab in [facility] once his mental health is stabilized. Pt. paces and naps intermittently during the shift, however he remains guarded and is not observed to be interacting with others. He is however noted to be more present on the unit. Pt. reports ongoing anxiety and PRN Atarax administered with some effectiveness, will continue to monitor. S/I, H/I: Pt. reports ongoing S/I with a plan to hang himself A/VH: Pt. reports ongoing command A/V/MANNING, but does not appear to be internally preoccupied Sleep: Sleep hours are 7.5, and pt. naps intermittently during the day ADL's: Pt. requires some direction and encouragement Group attendance: No Were meds taken: Yes Any med S/E: None Mental Status Exam Appearance: Neat and appropriately dressed Eye contact: Good Behavior: Cooperative, fatigued, guarded, anxious, and withdrawn Speech: Soft, responds minimal to direct questions. Pt. is more forthcoming with conversation than previously noted Mood: Guarded and intense Affect: Constricted Thought process: Linear with some poverty of thought Thought Content: Ongoing command A/V/MANNING and depression Cognition: A&O X4 Insight: Fair Judgment: Fair Interventions PRN's used: Atarax Therapeutic interventions: Maintained a safe and supportive environment, ensured contract for safety, provided clear and simple instructions, attempted to orient to reality, encouraged participation on the unit and performance of ADLs, provided active listening and positive encouragement, and maintained Q 15min safety checks. Restraints/seclusion/emergency medication: N/A Justification of Continued Inpatient Treatment: Per KACIE Merrill, pt. continues to require a safe and supportive environment and time for medications to reach a therapeutic effect. Addendum: 07/28/21 at 1227 by Buffy Love RN Pt. later attended group Judicata with encouragement from this technical report writer. He stated excitedly, "I played Judicata and I won!"
[2021-07-28] MEDS: LORazepam 1 MG tablet PO SCH ×2 (11:59→20:01)
[2021-07-28] MEDS ORDERED: PALIPERIDONE 3 MG TAB.ER.24 PO ONE (13:55)
[2021-07-28 19:42] VITALS: BP 117/71
[2021-07-28] MEDS: traZODone 50mg tablet PO SCH (20:01)
--- NOTE | 2021-07-29 00:50 | NUR ---
Nursing Progress Note: Legal hold: 5250 Client on involuntary status for DTS/DTO Report received from nurse with use of SBAR: ZAIRA Thompson Why are they here: Client reported suicidal ideation. Client reported that he wanted to hang himself. He has had two prior suicide attempts by hanging. The first attempt was at age 16 yo. The second attempt was at age 26 yo. Client has a hx of heroin abuse. Reported that he stopped 7 months ago. Assessment What has happened this shift: Patient approached this poem writer at beginning of shift change and asked if he could take his Suboxone at 19:00 rather then 20:00. I communicated with the patient that that could be done if he'd prefer. Patient then came and asked for a nicotine lozenge. Patient seemed to be walking back and forth in the hallway. Patient states that he has been hearing voices during 1:1 telling him to hang himself and that he hopes the medications will kick in soon so he doesn't have to hear them anymore. Patient ate snack in community room with cohorts at snack time. Patient took medications at evening med pass w/o complications. Patient went to bed shortly after. S/I, H/I: Pt. reports ongoing S/I with a plan to hang himself A/VH: Pt. reports ongoing command A/V/MANNING, but does not appear to be internally preoccupied Sleep: See sleep hours ADL's: Pt. requires some direction and encouragement Group attendance: No Were meds taken: Yes Any med S/E: None Mental Status Exam Appearance: Neat and appropriately dressed Eye contact: Good Behavior: Cooperative, fatigued, guarded, anxious, and withdrawn Speech: Soft Mood: Guarded Affect: Constricted Thought process: Linear with some poverty of thought Thought Content: Ongoing command A/V/MANNING and depression Cognition: A&O X4 Insight: Fair Judgment: Fair Interventions PRN's used: Trazodone 100mg Therapeutic interventions: Maintained a safe and supportive environment, ensured contract for safety, provided clear and simple instructions, attempted to orient to reality, encouraged participation on the unit and performance of ADLs, provided active listening and positive encouragement, and maintained Q 15min safety checks. Restraints/seclusion/emergency medication: N/A Justification of Continued Inpatient Treatment: Per KACIE Merrill, pt. continues to require a safe and supportive environment and time for medications to reach a therapeutic effect.
[2021-07-29 07:31] VITALS: BP 121/83
[2021-07-29] MEDS: PALIPERIDONE 3 MG TAB.ER.24 PO SCH (08:08)
[2021-07-29] MEDS: buprenorphine/naloxone 8MG-2MG SUBlingual film SL SCH ×2 (08:08→19:30)
[2021-07-29] MEDS: nicotine 21mg patch - 24 hr TD SCH (08:09)
[2021-07-29] MEDS: buPROPion 100mg tablet PO SCH ×2 (08:09→12:02)
[2021-07-29] MEDS: LORazepam 1 MG tablet PO SCH ×2 (12:02→20:07)
--- NOTE | 2021-07-29 12:33 | NUR ---
Nursing Progress Note: Legal hold: 5250 Client on involuntary status for DTS/DTO Report received from nurse with use of SBAR: Jodi Sol RN Why are they here: Client reported suicidal ideation. Client reported that he wanted to hang himself. He has had two prior suicide attempts by hanging. The first attempt was at age 16 yo. The second attempt was at age 26 yo. Client has a hx of heroin abuse. Reported that he stopped 7 months ago. Assessment What has happened this shift: Received pt. sleeping in bed at the beginning of the shift, he awoke and attended breakfast in the Group Room. Afterwards, pt. approached the nurse's station requesting his AM medications. 1:1 was completed at bedside, pt. continues to present as slightly anxious and guarded with a blunted affect. He provides soft responses to direct questions with paucity of verbal output. Pt. reports decreased A/MANNING, stating, "I can barely hear them." When questioned regarding ongoing V/MANNING or S/I, pt. states, "Yeah, they all go together," however he does not elaborate. Pt. then walks away from this commercial real estate underwriter and is observed to be pacing in the hallway as is his routine. Pt. again paces and naps intermittently during the shift, and remains withdrawn from others. S/I, H/I: Pt. reports ongoing S/I with a plan to hang himself A/VH: Pt. reports ongoing command A/V/MANNING, but does not appear to be internally preoccupied Sleep: Sleep hours are 8.25, and pt. naps intermittently during the day ADL's: Pt. requires some direction and encouragement Group attendance: N/A Were meds taken: Yes Any med S/E: None Mental Status Exam Appearance: Neat and appropriately dressed Eye contact: Good Behavior: Cooperative, fatigued, guarded, anxious, and withdrawn Speech: Soft, responds minimal to direct questions. Slow responses with paucity of verbal output Mood: Guarded and intense Affect: Blunted Thought process: Linear with some poverty of thought Thought Content: Ongoing command A/V/MANNING and depression Cognition: A&O X4 Insight: Fair Judgment: Fair Interventions PRN's used: Atarax Therapeutic interventions: Maintained a safe and supportive environment, ensured contract for safety, provided clear and simple instructions, attempted to orient to reality, encouraged participation on the unit and performance of ADLs, provided active listening and positive encouragement, and maintained Q 15min safety checks. Restraints/seclusion/emergency medication: N/A Justification of Continued Inpatient Treatment: Per Dr. Griggs, pt. continues to require a safe and supportive environment and time for medications to reach a therapeutic effect. Discharge will be [facility] vs. rehab.
[2021-07-29] MEDS: hydrOXYzine 25 MG tablet PO PRN (16:28)
[2021-07-29 19:00] VITALS: BP 112/65
[2021-07-29] MEDS: traZODone 50mg tablet PO SCH (20:07)
--- NOTE | 2021-07-29 22:34 | NUR ---
Nursing Progress Note: Legal hold: 5250 Client on involuntary status for DTS/DTO Report received from nurse with use of SBAR: ZAIRA Thompson Why are they here: Client reported suicidal ideation. Client reported that he wanted to hang himself. He has had two prior suicide attempts by hanging. The first attempt was at age 16 yo. The second attempt was at age 26 yo. Client has a hx of heroin abuse. Reported that he stopped 7 months ago. Assessment What has happened this shift: Patiient pacing back and forth in hallway at shift change. Patient states that he believes his medication has begun to work and can't wait to feel better.Patient reports hearing less voices and seems happy but guarded. Patient took shower after 1:1, when asking direct questions patient seems to start walking away either to not being confronted or to pace hallway. Patient asked for socks and then went to community room. Patient ate snacks in the community room and then took medications w/o complications.Patient went to bed shortly after. A/VH: Pt. reports ongoing command A/V/MANNING Sleep: See sleep hours ADL's: Pt. requires some direction and encouragement Group attendance: N/A Were meds taken: Yes Any med S/E: None Mental Status Exam Appearance: Neat and appropriately dressed Eye contact: Good Behavior: Cooperative, fatigued, guarded, anxious, and withdrawn Speech: Soft, responds minimal to direct questions. Slow responses with paucity of verbal output Mood: Guarded and intense Affect: Blunted Thought process: Linear with some poverty of thought Thought Content: Ongoing command A/V/MANNING and depression Cognition: A&O X4 Insight: Fair Judgment: Fair Interventions PRN's used: Trazodone 100mg Therapeutic interventions: Maintained a safe and supportive environment, ensured contract for safety, provided clear and simple instructions, attempted to orient to reality, encouraged participation on the unit and performance of ADLs, provided active listening and positive encouragement, and maintained Q 15min safety checks. Restraints/seclusion/emergency medication: N/A Justification of Continued Inpatient Treatment: Per Dr. Griggs, pt. continues to require a safe and supportive environment and time for medications to reach a therapeutic effect. Discharge will be [facility] vs. rehab.
[2021-07-30 08:00] VITALS: BP 118/56
[2021-07-30] MEDS: nicotine 21mg patch - 24 hr TD SCH (08:01)
[2021-07-30] MEDS: PALIPERIDONE 3 MG TAB.ER.24 PO SCH (08:01)
[2021-07-30] MEDS: buprenorphine/naloxone 8MG-2MG SUBlingual film SL SCH ×2 (08:01→19:04)
[2021-07-30] MEDS: buPROPion 100mg tablet PO SCH ×2 (08:01→12:16)
[2021-07-30] MEDS ORDERED: paliperidone palmitate inj 234 MG/1.5 ML SYRINGE IM ONE (11:45)
[2021-07-30] MEDS: LORazepam 1 MG tablet PO SCH ×2 (12:16→20:18)
--- NOTE | 2021-07-30 12:38 | NUR ---
Nursing Progress Note: Legal hold: 5250 Client on involuntary status for DTS/DTO Report received from nurse with use of SBAR: Jodi Sol RN Why are they here: Client reported suicidal ideation. Client reported that he wanted to hang himself. He has had two prior suicide attempts by hanging. The first attempt was at age 16 yo. The second attempt was at age 26 yo. Client has a hx of heroin abuse. Reported that he stopped 7 months ago. Assessment What has happened this shift: Received pt. sleeping in bed at the beginning of the shift, he awoke and attended breakfast in the Group Room. Afterwards, pt. again approached the nurse's station requesting his AM medications and afterwards took a nap as is his routine. Pt. continues to present with a blunted affect and is mostly guarded with conversation, however he does exhibit improved animation (ie; smiling and greeting this report writer). Pt. continues to report passive S/I with a plan to hang himself, but also talks about his plans for the future and attending rehabilitation. He does admit he feels his medications are helping and his command A/V/MANNING are slowly subsiding. Ordered Invega Sustenna injection was administered in pt's left deltoid and he tolerated this procedure well, will continue to monitor closely. Pt. again paces during the shift, however can be observed to be intermittently interacting with others which he had not done before. S/I, H/I: Pt. reports passive S/I with a plan to hang himself A/VH: Pt. reports ongoing command A/V/MANNING, but does not appear to be internally preoccupied Sleep: Sleep hours are 8.25 ADL's: Independent Group attendance: N/A Were meds taken: Yes Any med S/E: None Mental Status Exam Appearance: Neat and appropriately dressed Eye contact: Good Behavior: Cooperative, fatigued, guarded, anxious, and withdrawn Speech: Soft, responds minimal to direct questions. Slow responses with paucity of verbal output Mood: Guarded and intense Affect: Blunted with animation Thought process: Linear with some poverty of thought Thought Content: Ongoing command A/V/MANNING and depression Cognition: A&O X4 Insight: Fair Judgment: Fair Interventions PRN's used: None Therapeutic interventions: Maintained a safe and supportive environment, ensured contract for safety, provided clear and simple instructions, attempted to orient to reality, encouraged participation on the unit, provided active listening and positive encouragement, administered ordered Invega Sustenna injection, and maintained Q 15min safety checks. Restraints/seclusion/emergency medication: N/A Justification of Continued Inpatient Treatment: Per Dr. Griggs, pt. continues to require a safe and supportive environment and time for medications to reach a therapeutic effect. Discharge will be [facility] vs. rehab.
[2021-07-30] MEDS: hydrOXYzine 25 MG tablet PO PRN (14:39)
[2021-07-30 19:26] VITALS: BP 107/63
[2021-07-30] MEDS: traZODone 50mg tablet PO SCH (20:19)
--- NOTE | 2021-07-31 00:03 | NUR ---
Nursing Progress Note: Legal hold: 5250 Client on involuntary status for DTS/DTO Report received from nurse with use of SBAR: ZAIRA Thompson Why are they here: Client reported suicidal ideation. Client reported that he wanted to hang himself. He has had two prior suicide attempts by hanging. The first attempt was at age 16 yo. The second attempt was at age 26 yo. Client has a hx of heroin abuse. Reported that he stopped 7 months ago. Assessment What has happened this shift: Patient room at shift change. The patient got up to watch TV with cohorts, although not much interaction had transpired between them. The patient mostly paces in the hallway with an intense look on his face and isolates mostly to self. Patient reports a BM this shift. The pt still report SI with voices but states that they are getting less. Patient had a Invega injection and reported feeling a little different but still good. Patient ate snack in community room with cohorts then took medications w/o complications. Patient request Trazodone with evening meds for sleep. S/I, H/I: Pt. reports passive S/I with a plan to hang himself A/VH: + A/H with SI Sleep:See sleep hours ADL's: Independent Group attendance: N/A Were meds taken: Yes Any med S/E: None Mental Status Exam Appearance: Neat and appropriately dressed Eye contact: Good Behavior: Cooperative, fatigued, guarded, anxious, and withdrawn Speech: Soft, responds minimal to direct questions. Slow responses with paucity of verbal output Mood: Guarded and intense Affect: Blunted with animation Thought process: Linear with some poverty of thought Thought Content: Ongoing command A/V/MANNING and depression Cognition: A&O X4 Insight: Fair Judgment: Fair Interventions PRN's used: Trazodone 100mg Therapeutic interventions: Maintained a safe and supportive environment, ensured contract for safety, provided clear and simple instructions, attempted to orient to reality, encouraged participation on the unit, provided active listening and positive encouragement, administered ordered Invega Sustenna injection, and maintained Q 15min safety checks. Restraints/seclusion/emergency medication: N/A Justification of Continued Inpatient Treatment: Per Dr. Griggs, pt. continues to require a safe and supportive environment and time for medications to reach a therapeutic effect. Discharge will be [facility] vs. rehab.
[2021-07-31] MEDS: PALIPERIDONE 3 MG TAB.ER.24 PO SCH (08:04)
[2021-07-31] MEDS: nicotine 21mg patch - 24 hr TD SCH (08:04)
[2021-07-31] MEDS: buprenorphine/naloxone 8MG-2MG SUBlingual film SL SCH ×2 (08:04→19:02)
[2021-07-31] MEDS: buPROPion 100mg tablet PO SCH ×2 (08:04→12:31)
[2021-07-31 08:21] VITALS: BP 104/59
[2021-07-31] MEDS: LORazepam 1 MG tablet PO SCH ×2 (12:31→20:03)
--- NOTE | 2021-07-31 12:41 | NUR ---
CM-Pre-DCP Presenting Issues: Pt is on 5249 which will on 08/06, pt's expressed desire to stay in [facility] following d/c, had completed an online application for [facility] the [facility] but [facility] would like pt to rt to their SOC. Pt continues to need dcp support. Interventions: Clinician met w/pt and engaged him in pre-dcp activities & provided support for pt to identify possible d/c destinations. Pt wants to use the [facility] for long-term but not rehab/recovery services, he wants to go thru [place]. Clinician provided pt w/contact info for [facility] and instructed him to call to ask for inpatient substance use treatment. Plan: Clinician will continue to monitor & provide dcp support. Meli Iyer LCSW Addendum: 07/31/21 at 1255 by Meli Iyer SS Amended: Links added.
--- NOTE | 2021-07-31 15:24 | NUR ---
Nursing Progress Note: Legal hold: 5250 Client on involuntary status for DTS/DTO Report received from nurse Carolin MENESES with use of SBAR. Why are they here: Client reported suicidal ideation. Client reported that he wanted to hang himself. He has had two prior suicide attempts by hanging. The first attempt was at age 16 yo. The second attempt was at age 26 yo. Client has a hx of heroin abuse. Reported that he stopped 7 months ago. Assessment What has happened this shift: Pt was up pacing in the hallway before breakfast. Pt appears less anxious and is calm upon approach. Pt continues to report VH but states the voices are not really there anymore. Pt also says he is no longer thinking of killing himself. Pt is mostly isolative to self, but has bright affect when approached. S/I, H/I: denies A/VH: +VH Sleep: pt napped for much of the morning. ADL's: Independent Group attendance: No Were meds taken: Yes Any med S/E: None noted or reported. Mental Status Exam Appearance: Tall, younger appearing man with dark hair. Eye contact: Good. Behavior: Restless, isolative to self, paces in the hallway. Speech: Clear,audible, normal rate and rhythm. Mood: Anxious, depressed. Affect: Restless, anxious Thought process: Internally preoccupied. Thought Content: The CAH are present, but pt notices improvement Cognition: A&O X4 Insight: Poor Judgment: Poor Interventions PRN's used: n/a Therapeutic interventions: 1:1 assessment, establishment of rapport, therapeutic communication, active listening, ensured contract for safety, medication administration/education/monitoring, encouragement to attend groups, provided distraction, direction, positive reinforcement, and maintained Q15 minute safety checks. Restraints/seclusion/emergency medication: N/A Justification of Continued Inpatient Treatment: Pt continues to report SI as well as VH and CAH. Pt was started on Paliperidone yesterday. Pt needs further medication adjustment and management in a safe and therapeutic environment until stable and no longer a danger to himself or others. Pt is interested in going to rehab and a referral has been sent to [facility].
[2021-07-31 19:38] VITALS: BP 100/65
[2021-07-31] MEDS: traZODone 50mg tablet PO SCH (20:03)
--- NOTE | 2021-07-31 22:38 | NUR ---
Nursing Progress Note: Legal hold: 5250 Client on involuntary status for DTS/DTO Report received from nurse RN with use of SBAR. Why are they here: Client reported suicidal ideation. Client reported that he wanted to hang himself. He has had two prior suicide attempts by hanging. The first attempt was at age 16 yo. The second attempt was at age 26 yo. Client has a hx of heroin abuse. Reported that he stopped 7 months ago. Assessment What has happened this shift: Patient pacing in hallway. Patient asked to get his Suboxone at 19:00. Patient reminded nurse at 1900 that Suboxone was due, pt took med with good results. Patient 1:1, pt reports not hearing voices but seeing people that shouldn't be there. Patient states that's why he paces the halls so frequently, it makes him feel better. Patient ate snack at snack time. Removed pt nicotine patch. Patient took evening meds w/o complications and went to bed shortly after. S/I, H/I: denies A/VH: +VH Sleep: See sleep hours ADL's: Independent Group attendance: No Were meds taken: Yes Any med S/E: None noted or reported. Mental Status Exam Appearance: Tall, younger appearing man with dark hair. Eye contact: Good. Behavior: Restless, isolative to self, paces in the hallway. Speech: Clear,audible, normal rate and rhythm. Mood: Anxious, depressed. Affect: Restless, anxious Thought process: Internally preoccupied. Thought Content: See people that are not there Cognition: A&O X4 Insight: Poor Judgment: Poor Interventions PRN's used: Trazodone 100mg Therapeutic interventions: 1:1 assessment, establishment of rapport, therapeutic communication, active listening, ensured contract for safety, medication administration/education/monitoring, encouragement to attend groups, provided distraction, direction, positive reinforcement, and maintained Q15 minute safety checks. Restraints/seclusion/emergency medication: N/A Justification of Continued Inpatient Treatment: Pt continues to report SI as well as VH and CAH. Pt was started on Paliperidone yesterday. Pt needs further medication adjustment and management in a safe and therapeutic environment until stable and no longer a danger to himself or others. Pt is interested in going to rehab and a referral has been sent to [facility].
--- NOTE | 2021-08-01 07:14 | NUR ---
Reassessment: Currently on Regular diet w/ mostly 100% intake of meals meeting est nutrient needs at this time. [facility] 07/31 w/ PRN bowel care available. No nutrition intervention implemented at this time, will continue to monitor. Recs: 1. Continue Regular diet as tolerated 2. Bowel care per rx 3. Weekly wts Addendum: 08/01/21 at [address] Amended: Links added.
[2021-08-01 08:26] VITALS: BP 100/64
[2021-08-01] MEDS: buPROPion 100mg tablet PO SCH (08:41)
[2021-08-01] MEDS: PALIPERIDONE 3 MG TAB.ER.24 PO SCH (08:41)
[2021-08-01] MEDS: buprenorphine/naloxone 8MG-2MG SUBlingual film SL SCH ×2 (08:42→19:41)
[2021-08-01] MEDS: nicotine 21mg patch - 24 hr TD SCH (08:42)
[2021-08-01] MEDS ORDERED: buPROPion 100mg tablet PO SCH ×2 (12:30)
[2021-08-01] MEDS: LORazepam 1 MG tablet PO SCH ×2 (12:42→19:41)
[2021-08-01] MEDS ORDERED: buPROPion SR 150mg tablet PO ONE (14:30)
--- NOTE | 2021-08-01 17:02 | NUR ---
Nursing Progress Note: Legal hold: 5250 Client on involuntary status for DTS/DTO Report received from nurse with use of SBAR: ZAIRA Baer Why are they here: Client reported suicidal ideation. Client reported that he wanted to hang himself. He has had two prior suicide attempts by hanging. The first attempt was at age 16 yo. The second attempt was at age 26 yo. Client has a hx of heroin abuse. Reported that he stopped 7 months ago. Assessment What has happened this shift: R Pt received lying in bed having just eaten lunch. Pt continues to complain of visual hallucinations, but is intentional in letting me know that the auditory hallucinations are just about gone. Pt denies S.I. at this time. Pt does continue to pace the unit and requests medication for anxiety. Pt calm and cooperative. S/I, H/I: Pt. reports ongoing S/I with a plan to hang himself A/VH: Pt. reports ongoing command A/V/MANNING, but does not appear to be internally preoccupied Sleep: Sleep hours are 7.5, and pt. naps intermittently during the day ADL's: Pt. requires some direction and encouragement Group attendance: No Were meds taken: Yes Any med S/E: None Mental Status Exam Appearance: Neat and appropriately dressed Eye contact: Good Behavior: Cooperative, fatigued, guarded, anxious, and withdrawn Speech: Soft, responds minimal to direct questions. Pt. is more forthcoming with conversation than previously noted Mood: Guarded and intense Affect: Constricted Thought process: Linear with some poverty of thought Thought Content: Ongoing command A/V/MANNING and depression Cognition: A&O X4 Insight: Fair Judgment: Fair Interventions PRN's used: atarax Therapeutic interventions: Maintained a safe and supportive environment, ensured contract for safety, provided clear and simple instructions, attempted to orient to reality, encouraged participation on the unit and performance of ADLs, provided active listening and positive encouragement, and maintained Q 15min safety checks. Restraints/seclusion/emergency medication: N/A Justification of Continued Inpatient Treatment: Per KACIE Merrill, pt. continues to require a safe and supportive environment and time for medications to reach a therapeutic effect.
[2021-08-01] MEDS: hydrOXYzine 25 MG tablet PO PRN (17:09)
[2021-08-01] MEDS: traZODone 50mg tablet PO SCH (19:41)
[2021-08-01 19:46] VITALS: BP 105/65
--- NOTE | 2021-08-02 03:44 | NUR ---
Nursing Progress Note: Legal hold: 5250 Client on involuntary status for DTS/DTO Report received from ZAIRA Thompson with use of SBAR. Why are they here: Client reported suicidal ideation. Client reported that he wanted to hang himself. He has had two prior suicide attempts by hanging. The first attempt was at age 16 yo. The second attempt was at age 26 yo. Client has a hx of heroin abuse. Reported that he stopped 7 months ago. Assessment What has happened this shift: R Patient pacing the unit at the beginning of shift. Pleasant and cooperative with care; compliant with medication. PRN Trazodone provided. Nicotine patch removed. Patient denies SI, HI, AH and endorses VH of a male figure that comes and goes; no apparent delusions expressed. Patient participated in HS snack and promptly retired to bed; observed sleeping and does not appear to be having difficulty. S/I, H/I: Denies A/VH: +VH Sleep: Refer to sleep assessment ADL's: Independent Group attendance: NA Were meds taken: Yes Any med S/E: None observed or reported Mental Status Exam Appearance: Neat and appropriately dressed Eye contact: Good Behavior: Pleasant and cooperative, anxious, pacing the unit, self isolative Speech: Clear, audible, minimal Mood: Anxious Affect: Constricted Thought process: Linear with some poverty of thought Thought Content: Meeting needs Cognition: A&O X4 Insight: Fair Judgment: Fair Interventions PRN's used: Trazodone Therapeutic interventions: Maintained a safe and supportive environment, ensured contract for safety, provided clear and simple instructions, attempted to orient to reality, encouraged participation on the unit and performance of ADLs, provided active listening and positive encouragement, and maintained Q 15min safety checks. Restraints/seclusion/emergency medication: NA Justification of Continued Inpatient Treatment: Per KACIE Merrill, pt. continues to require a safe and supportive environment and time for medications to reach a therapeutic effect.
[2021-08-02 07:36] VITALS: BP 112/59
[2021-08-02] MEDS: nicotine 21mg patch - 24 hr TD SCH (07:45)
[2021-08-02] MEDS: PALIPERIDONE 3 MG TAB.ER.24 PO SCH (07:45)
[2021-08-02] MEDS: buprenorphine/naloxone 8MG-2MG SUBlingual film SL SCH ×2 (07:45→19:59)
[2021-08-02] MEDS: buPROPion 75mg tablet PO SCH ×2 (07:45→12:03)
[2021-08-02] MEDS ORDERED: aripiprazole 400mg suspension ER syringe IM SCH (10:00)
[2021-08-02] MEDS: LORazepam 1 MG tablet PO SCH ×2 (12:03→20:00)
--- NOTE | 2021-08-02 12:09 | NUR ---
Nursing Progress Note: Legal hold: 5250 Client on involuntary status for DTS/DTO Report received from nurse with use of SBAR: ZAIRA Dee Why are they here: Client reported suicidal ideation. Client reported that he wanted to hang himself. He has had two prior suicide attempts by hanging. The first attempt was at age 16 yo. The second attempt was at age 26 yo. Client has a hx of heroin abuse. Reported that he stopped 7 months ago. Assessment What has happened this shift: Received pt. sleeping in bed at the beginning of the shift, he awoke and attended breakfast in the Group Room. 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 He continues to present as guarded with conversation and responds minimally to direct questions only. When questioned regarding any S/I or A/MANNING, pt. denies these. However, he does admit to intermittent V/MANNING and states, "The big jose is still there." Pt. attends group this shift and is observed to be more present and participating on the unit than previously noted. S/I, H/I: Denies A/VH: Pt. denies A/MANNING, however reports intermittent V/MANNING Sleep: Sleep hours are 9 ADL's: Independent Group attendance: Yes Were meds taken: Yes Any med S/E: None Mental Status Exam Appearance: Neat and appropriately dressed Eye contact: Good Behavior: Cooperative,guarded, and withdrawn Speech: Soft, responds minimal to direct questions. Mood: Guarded Affect: Blunted with animation Thought process: Linear with some poverty of thought Thought Content: Ongoing V/MANNING Cognition: A&O X4 Insight: Fair Judgment: Fair Interventions PRN's used: None Therapeutic interventions: Maintained a safe and supportive environment, ensured contract for safety, provided clear and simple instructions, attempted to orient to reality, encouraged participation on the unit, provided active listening and positive encouragement, and maintained Q 15min safety checks. Restraints/seclusion/emergency medication: N/A Justification of Continued Inpatient Treatment: Per Dr. Case, pt. continues to require a safe and supportive environment and medication adjustments.
--- NOTE | 2021-08-02 14:11 | NUR ---
Pt attended group today. We played the Ungame which is a game that fosters communication between group members as the card they pick ask them questions about themselves that they have to answer. Pt. was alert and oriented X 4. His thought content and thought process was WNL. He answered the questions appropriately and seemed to enjoy socializing with his peers. He stayed to play Hang Man when the Ungame was finished after another peer suggesting playing it. Amarilis Grant, HEAD OF HUMAN RESOURCES
[2021-08-02] MEDS: hydrOXYzine 25 MG tablet PO PRN (16:33)
[2021-08-02 19:42] VITALS: BP 108/69
[2021-08-02] MEDS: traZODone 50mg tablet PO SCH (19:59)
--- NOTE | 2021-08-03 02:38 | NUR ---
Nursing Progress Note: Legal hold: 5250 Client on involuntary status for DTS/DTO Report received from ZAIRA Castaneda with use of SBAR. Why are they here: Client reported suicidal ideation. Client reported that he wanted to hang himself. He has had two prior suicide attempts by hanging. The first attempt was at age 16 yo. The second attempt was at age 26 yo. Client has a hx of heroin abuse. Reported that he stopped 7 months ago. Assessment What has happened this shift: R Patient pacing the unit at the beginning of shift. Pleasant and cooperative with care; compliant with medication. PRN Trazodone provided. Nicotine patch removed. Patient denies SI, HI, AH and endorses VH of a man staring at him; no apparent delusions reported this shift. Patient participated in HS snack and promptly retired to bed; observed sleeping and does not appear to be having difficulty. S/I, H/I: Denies A/VH: +VH Sleep: Refer to sleep assessment ADL's: Independent Group attendance: NA Were meds taken: Yes Any med S/E: None observed or reported Mental Status Exam Appearance: Neat and appropriately dressed Eye contact: Good Behavior: Pleasant and cooperative, anxious, pacing the unit, self isolative Speech: Clear, audible, minimal Mood: Anxious Affect: Constricted Thought process: Linear with some poverty of thought Thought Content: Meeting needs Cognition: A&O X4 Insight: Fair Judgment: Fair Interventions PRN's used: Trazodone Therapeutic interventions: Maintained a safe and supportive environment, ensured contract for safety, provided clear and simple instructions, attempted to orient to reality, encouraged participation on the unit and performance of ADLs, provided active listening and positive encouragement, and maintained Q 15min safety checks. Restraints/seclusion/emergency medication: NA Justification of Continued Inpatient Treatment: Per KACIE Merrill, pt. continues to require a safe and supportive environment and time for medications to reach a therapeutic effect.
[2021-08-03 07:37] VITALS: BP 96/56
[2021-08-03] MEDS: PALIPERIDONE 3 MG TAB.ER.24 PO SCH (07:54)
[2021-08-03] MEDS: buprenorphine/naloxone 8MG-2MG SUBlingual film SL SCH ×2 (07:54→19:20)
[2021-08-03] MEDS: nicotine 21mg patch - 24 hr TD SCH (07:54)
[2021-08-03] MEDS: buPROPion 75mg tablet PO SCH ×2 (07:54→12:23)
--- NOTE | 2021-08-03 09:38 | NUR ---
CM-Linkages Presenting Issues: Pt is close to baseline, thought process is more linear, pt denies SI/HI?VH/TH; +CAH to harm self but pt reports no emotional distress and that he's able to ignore the CAH. Pt continues to express desires to enter inpatient substance use program, "I'm tired of using, I want a more stable life." Interventions: Clinician met w/pt and provided support for him to contact [facility] to complete screening for services. Per session, [facility] currently has no male beds, [facility] was also called [phone] inpatient intake Plan: Clinician will continue to provide support for pt to access in substance use programs via [facility]. Meli Iyer LCSW Addendum: 08/03/21 at 1004 by Meli Iyer SS Amended: Links added.
[2021-08-03] MEDS: LORazepam 1 MG tablet PO SCH ×2 (12:23→19:20)
--- NOTE | 2021-08-03 17:00 | NUR ---
Nursing Progress Note: Legal hold: 5250 Client on involuntary status for DTS/DTO Report received from ZAIRA Coe with use of SBAR. Why are they here: Client reported suicidal ideation. Client reported that he wanted to hang himself. He has had two prior suicide attempts by hanging. The first attempt was at age [age] years old. The second attempt was at age [age] years old. Client has a history of heroin abuse. Reported that he stopped 7 months ago. Assessment What has happened this shift: Received patient while he was sleeping. Introduced self when patient woke up and started to ambulate to the Community Room for his breakfast. Patient took his 0800 medications without any issues. Patient ambulated multiple laps around the hallway with another peer, talking as they completed laps for approximately 1.5 hours. Patient participated in snack times during the daytime. Patient took short naps on his bed between meals. Patient spent much of the day talking to one of the male peers in the Community Room between breakfast and the lunch times. S/I, H/I: Denies A/VH: Denies Sleep: 6.50 hours ADL's: Independent Group attendance: NA Were meds taken: Yes, without hesitation. Any med S/E: None observed or reported Mental Status Exam Appearance: Dressed in black shirt and pants with a black sweatshirt and black hat. Eye contact: Good Behavior: Pleasant and cooperative. Speech: Clear, audible speech pattern. Mood: Calm Affect: Constricted Thought process: Meeting own needs. Thought Content: Meeting own needs Cognition: A&O X4 Insight: Fair Judgment: Fair Interventions PRN's used: None Therapeutic interventions: Maintained a safe and supportive environment, ensured contract for safety, provided clear and simple instructions, attempted to orient to reality, encouraged participation on the unit and performance of ADLs, provided active listening and positive encouragement, and maintained Q 15min safety checks. Restraints/seclusion/emergency medication: NA Justification of Continued Inpatient Treatment: KACIE Pickens, pt. continues to require a safe and supportive environment and time for medications to reach a therapeutic effect.
[2021-08-03 19:00] VITALS: BP 105/60
[2021-08-03] MEDS: traZODone 50mg tablet PO SCH (20:27)
--- NOTE | 2021-08-04 02:45 | NUR ---
Nursing Progress Note: Michael Legal hold: 5250 Client on involuntary status for DTS/DTO Report received from ZAIRA Castaneda with use of SBAR. Why are they here: Client reported suicidal ideation. Client reported that he wanted to hang himself. He has had two prior suicide attempts by hanging. The first attempt was at age [age] years old. The second attempt was at age [age] years old. Client has a history of heroin abuse. Reported that he stopped 7 months ago. Assessment What has happened this shift: Patient lying in bed resting at change of shift. Pleasant and cooperative with care; compliant with medication. PRN Trazodone provided. Nicotine patch removed. Patient denies SI, HI, AH and states he is doing OK no apparent delusions reported this shift. Patient participated in HS snack and promptly retired to bed; however was observed pacing shortly after 2100. Pt was able to settle into bed and had a restful night.
[2021-08-04] MEDS: buprenorphine/naloxone 8MG-2MG SUBlingual film SL SCH ×2 (07:58→20:05)
[2021-08-04] MEDS: buPROPion 75mg tablet PO SCH ×2 (07:58→12:01)
[2021-08-04] MEDS: PALIPERIDONE 3 MG TAB.ER.24 PO SCH (07:58)
[2021-08-04 08:00] VITALS: BP 120/67
[2021-08-04] MEDS: nicotine 21mg patch - 24 hr TD SCH (08:01)
[2021-08-04] MEDS: hydrOXYzine 25 MG tablet PO PRN (10:51)
[2021-08-04] MEDS: LORazepam 1 MG tablet PO SCH ×2 (12:01→20:05)
[2021-08-04] MEDS ORDERED: paliperidone palmitate 156 mg/ml inj.**IM only IM ONE (14:05)
--- NOTE | 2021-08-04 15:47 | NUR ---
Nursing Progress Note: Legal hold: 5250 Client on involuntary status for DTS/DTO Report received from nurse Jodi Sol RN with use of SBAR. Why are they here: Client reported suicidal ideation. Client reported that he wanted to hang himself. He has had two prior suicide attempts by hanging. The first attempt was at age 16 yo. The second attempt was at age 26 yo. Client has a hx of heroin abuse. Reported that he stopped 7 months ago. Assessment What has happened this shift: Pt was up pacing in the hallway before breakfast. Pt appears less anxious and is calm upon approach; though, pt did request and receive atarax for anxiety today. Pt states the voices and visual hallucinations are not really there anymore. Pt also says he is no longer thinking of killing himself. Pt is mostly isolative to self and paces at times, but has bright/pleasant affect when approached. S/I, H/I: denies A/VH: denies Sleep: pt napped for much of the morning. ADL's: Independent Group attendance: No Were meds taken: Yes Any med S/E: None noted or reported. Mental Status Exam Appearance: Tall, younger appearing man with dark hair. Eye contact: Good. Behavior: Restless, isolative to self, paces in the hallway. Speech: Clear,audible, normal rate and rhythm. Mood: Anxious, depressed. Affect: Restless, anxious Thought process: Internally preoccupied. Thought Content: The CAH are present, but pt notices improvement Cognition: A&O X4 Insight: Poor Judgment: Poor Interventions PRN's used: n/a Therapeutic interventions: 1:1 assessment, establishment of rapport, therapeutic communication, active listening, ensured contract for safety, medication administration/education/monitoring, encouragement to attend groups, provided distraction, direction, positive reinforcement, and maintained Q15 minute safety checks. Restraints/seclusion/emergency medication: N/A Justification of Continued Inpatient Treatment: Pt continues to report SI as well as VH and CAH. Pt was started on Paliperidone yesterday. Pt needs further medication adjustment and management in a safe and therapeutic environment until stable and no longer a danger to himself or others. Pt is interested in going to rehab and a referral has been sent to [facility].
[2021-08-04] MEDS: NICOTINE POLACRILEX 2 MG LOZENGE BC PRN (16:44)
[2021-08-04 19:00] VITALS: BP 118/73
[2021-08-04] MEDS: traZODone 50mg tablet PO SCH (20:05)
--- NOTE | 2021-08-05 04:45 | NUR ---
Nursing Progress Note: Legal hold: 5250 Client on involuntary status for DTS/DTO Report received from ZAIRA Castaneda with use of SBAR. Why are they here: Client reported suicidal ideation. Client reported that he wanted to hang himself. He has had two prior suicide attempts by hanging. The first attempt was at age 16 yo. The second attempt was at age 26 yo. Client has a hx of heroin abuse. Reported that he stopped 7 months ago. Assessment What has happened this shift: Patient observed pacing the unit at the beginning of shift. Pleasant and cooperative with care; compliant with medication. PRN Trazodone provided. Nicotine patch removed. Patient denies SI, HI, A/VH; no apparent delusions expressed. Patient participated in HS snack and social with peer prior to bed; observed sleeping and does not appear to be having difficulty. Discharge: Per note: "Clinician will continue to provide support for pt to access inpt substance use programs via [facility]."
[2021-08-05 07:32] VITALS: BP 111/67
[2021-08-05] MEDS: buPROPion 75mg tablet PO SCH ×2 (07:52→12:48)
[2021-08-05] MEDS: buprenorphine/naloxone 8MG-2MG SUBlingual film SL SCH ×2 (07:53→19:41)
[2021-08-05] MEDS: nicotine 21mg patch - 24 hr TD SCH (07:53)
[2021-08-05] MEDS: NICOTINE POLACRILEX 2 MG LOZENGE BC PRN ×2 (10:28→14:42)
[2021-08-05] MEDS: hydrOXYzine 25 MG tablet PO PRN (11:18)
[2021-08-05] MEDS: LORazepam 1 MG tablet PO SCH ×2 (12:09→19:41)
--- NOTE | 2021-08-05 17:07 | NUR ---
Nursing Progress Note: Legal hold: 5250 Client on involuntary status for DTS/DTO Report received from ZAIRA Hernández with use of SBAR. Why are they here: Client reported suicidal ideation. Client reported that he wanted to hang himself. He has had two prior suicide attempts by hanging. The first attempt was at age [age] years old. The second attempt was at age [age] years old. Client has a history of heroin abuse. Reported that he stopped 7 months ago. Assessment What has happened this shift: Received patient while he was sleeping in bed. Patient aroused easily and sat up alongside his bed and took his medications. Patient went to the Community Room for breakfast. Patient laid down after breakfast and took a nap. Patient ambulated up and down the hallway for approximately 1.5 hours, then requested Atarax at 1130. Patient got relief from the Atarax and then ate lunch in the Community Room with others. Patient conversed with other peers at the same table he was sitting at for lunch. Patient went out to the patio at approximately 1345 with other peers for sunshine and fresh air. Patient returned from the [employer], and continued to ambulate up and down the hallway for approximately one hour. Weight today = 88.0 kg. Weight on 07/29 was 87.5 kg which is up 1.1 lbs. S/I, H/I: Denies A/VH: Denies Sleep: 7.75 hours ADL's: Independent Group attendance: No Group Meeting Held Today. Were meds taken: Yes, without hesitation. Any med S/E: None observed or reported Mental Status Exam Appearance: Dressed in black shirt and pants with a green scrub shirt and black hat. Eye contact: Good Behavior: Pleasant and cooperative. Speech: Clear, audible speech pattern. Mood: Calm Affect: Constricted Thought process: Meeting own needs. Thought Content: Meeting own needs Cognition: A&O X4 Insight: Fair Judgment: Fair Interventions PRN's used: Nicotine Lozenge & Atarax Therapeutic interventions: Maintained a safe and supportive environment, ensured contract for safety, provided clear and simple instructions, attempted to orient to reality, encouraged participation on the unit and performance of ADLs, provided active listening and positive encouragement, and maintained Q 15min safety checks. Restraints/seclusion/emergency medication: NA Justification of Continued Inpatient Treatment: Per KACIE Merrill, pt. continues to require a safe and supportive environment and time for medications to reach a therapeutic effect.
[2021-08-05 19:00] VITALS: BP 102/68
[2021-08-05] MEDS: traZODone 50mg tablet PO SCH (19:41)
--- NOTE | 2021-08-06 05:14 | NUR ---
Nursing Progress Note: Legal hold: VOL Client on voluntary status Report received from ZAIRA Adrian with use of SBAR. Why are they here: Client reported suicidal ideation. Client reported that he wanted to hang himself. He has had two prior suicide attempts by hanging. The first attempt was at age 16 yo. The second attempt was at age 26 yo. Client has a hx of heroin abuse. Reported that he stopped 7 months ago. Assessment What has happened this shift: Patient pacing the unit and social with peers at the beginning of shift. Pleasant and cooperative with care; compliant with medication. PRN Nicotine patch removed. PRN Trazodone provided. Patient denies SI, HI, A/VH; no apparent delusions expressed. Patient appeared bright when talking about plan for drug rehab after discharge. He participated in HS snack prior to bed; observed sleeping and does not appear to be having difficulty. Discharge: Per note: "Clinician will continue to provide support for pt to access in substance use programs via [facility]."
[2021-08-06 07:43] VITALS: BP 104/68
[2021-08-06] MEDS: buPROPion 75mg tablet PO SCH ×2 (07:48→13:56)
[2021-08-06] MEDS: nicotine 21mg patch - 24 hr TD SCH (07:48)
[2021-08-06] MEDS: buprenorphine/naloxone 8MG-2MG SUBlingual film SL SCH ×2 (07:48→19:41)
[2021-08-06] MEDS: hydrOXYzine 25 MG tablet PO PRN (10:31)
[2021-08-06] MEDS: NICOTINE POLACRILEX 2 MG LOZENGE BC PRN ×2 (12:10→19:08)
[2021-08-06] MEDS: LORazepam 1 MG tablet PO SCH ×2 (12:39→19:41)
--- NOTE | 2021-08-06 15:04 | NUR ---
Nursing Progress Note: Legal hold: Voluntary Client on voluntary status for DTS/DTO Report received from ZAIRA Hernández with use of SBAR. Why are they here: Client reported suicidal ideation. Client reported that he wanted to hang himself. He has had two prior suicide attempts by hanging. The first attempt was at age [age] years old. The second attempt was at age [age] years old. Client has a history of heroin abuse. Reported that he stopped 7 months ago. Assessment What has happened this shift: Received patient while he was sleeping in bed. Woke patient up to take 0800 medications and to eat breakfast. Patient pleasant and easily aroused. Patient went to the Community Room to eat breakfast, then returned to his room for a brief nap. Patient was back awake at 1020, and ambulating in the poon with another peer. Patient requested Atarax at 1030 with good relief. Patient also signed the contract for Voluntary Status and the original copy was given to [employer] prosthetic lab technician, and a copy was given to the patient. Patient continued ambulating through the hallway at this time. Patient ate lunch in the Community Room, then retreated to his bed for a short nap. Patient then ambulated in the hallway, with another peer, for long periods of time during the afternoon. S/I, H/I: Denies A/VH: Denies Sleep: 8.50 hours ADL's: Independent Group attendance: No Group Meeting Held Today. Were meds taken: Yes, without hesitation. Any med S/E: None observed or reported Mental Status Exam Appearance: Dressed in black shirt and pants with a green scrub shirt and black hat. Eye contact: Good Behavior: Pleasant and cooperative. Speech: Clear, audible speech pattern. Mood: Calm Affect: Constricted Thought process: Meeting own needs. Thought Content: Meeting own needs Cognition: A&O X4 Insight: Fair Judgment: Fair Interventions PRN's used: Atarax & Nicotine Lozenge Therapeutic interventions: Maintained a safe and supportive environment, ensured contract for safety, provided clear and simple instructions, attempted to orient to reality, encouraged participation on the unit and performance of ADLs, provided active listening and positive encouragement, and maintained Q 15min safety checks. Restraints/seclusion/emergency medication: NA Justification of Continued Inpatient Treatment: Per KACIE Merrill, pt. continues to require a safe and supportive environment and time for medications to reach a therapeutic effect.
[2021-08-06] MEDS: traZODone 50mg tablet PO SCH (19:41)
[2021-08-06 19:42] VITALS: BP 127/69
--- NOTE | 2021-08-07 05:37 | NUR ---
Nursing Progress Note: Legal hold: VOL Client on voluntary status Report received from ZAIRA Melvin with use of SBAR. Why are they here: Client reported suicidal ideation. Client reported that he wanted to hang himself. He has had two prior suicide attempts by hanging. The first attempt was at age 16 yo. The second attempt was at age 26 yo. Client has a hx of heroin abuse. Reported that he stopped 7 months ago. Assessment What has happened this shift: Patient pacing the poon and social with peers at the beginning of shift. Pleasant and cooperative with care; compliant with medication. PRN Trazodone and Nicotine lozenge provided. Nicotine patch removed. Patient denies SI, HI, A/VH; no apparent delusions reported. He participated in HS snack prior to bed; observed sleeping and does not appear to be having difficulty. Discharge: Per note: "Clinician will continue to provide support for pt to access inpt substance use programs via [facility]."
[2021-08-07] MEDS: buPROPion 75mg tablet PO SCH ×2 (07:26→12:21)
[2021-08-07] MEDS: nicotine 21mg patch - 24 hr TD SCH (07:27)
[2021-08-07] MEDS: buprenorphine/naloxone 8MG-2MG SUBlingual film SL SCH ×2 (07:27→19:43)
[2021-08-07 08:44] VITALS: BP 122/70
[2021-08-07] MEDS: hydrOXYzine 25 MG tablet PO PRN ×2 (09:59→18:18)
[2021-08-07] MEDS: NICOTINE POLACRILEX 2 MG LOZENGE BC PRN ×3 (10:21→18:18)
[2021-08-07] MEDS: LORazepam 1 MG tablet PO SCH ×2 (12:20→19:43)
--- NOTE | 2021-08-07 16:52 | NUR ---
Nursing Progress Note: ALIX Legal hold: Voluntary Client on voluntary status for DTS/DTO Report received from RN with use of SBAR. Why are they here: Client reported suicidal ideation. Client reported that he wanted to hang himself. He has had two prior suicide attempts by hanging. The first attempt was at age [age] years old. The second attempt was at age [age] years old. Client has a history of heroin abuse. Reported that he stopped 7 months ago. Assessment What has happened this shift: Patient was ambulating in hallway and drinking coffee early on in the shift. Took his medications without an issue. He denies any SI/HI and V/A hallucinations. Patient walking around making small talk with other patients on the unit. S/I, H/I: Denies A/VH: Denies Sleep: none ADL's: Independent Group attendance: Attended 1st group meeting Were meds taken: Yes, without hesitation. Any med S/E: None observed or reported Mental Status Exam Appearance: Dressed in black sweater and pants with a green scrub shirt and black hat. Eye contact: Good Behavior: Pleasant and cooperative. Speech: Clear, audible speech pattern. Mood: Calm Affect: Constricted Thought process: Meeting own needs. Thought Content: Meeting own needs Cognition: A&O X4 Insight: Fair Judgment: Fair Interventions PRN's used: Atarax & Nicotine Lozenge Therapeutic interventions: Maintained a safe and supportive environment, ensured contract for safety, provided clear and simple instructions, attempted to orient to reality, encouraged participation on the unit and performance of ADLs, provided active listening and positive encouragement, and maintained Q 15min safety checks. Restraints/seclusion/emergency medication: NA Justification of Continued Inpatient Treatment: KACIE Pickens, pt. continues to require a safe and supportive environment and time for medications to reach a therapeutic effect.
[2021-08-07 19:38] VITALS: BP 118/68
[2021-08-07] MEDS: traZODone 50mg tablet PO SCH (19:43)
--- NOTE | 2021-08-08 05:03 | NUR ---
Nursing Progress Note: Legal hold: VOL Client on voluntary status Report received from ZAIRA Castaneda with use of SBAR. Why are they here: Client reported suicidal ideation. Client reported that he wanted to hang himself. He has had two prior suicide attempts by hanging. The first attempt was at age 16 yo. The second attempt was at age 26 yo. Client has a hx of heroin abuse. Reported that he stopped 7 months ago. Assessment What has happened this shift: Patient pacing the unit at the beginning of shift. Pleasant and cooperative with care; compliant with medication. PRN Trazodone provided and Nicotine patch removed. Patient denies SI, HI, A/VH; no apparent delusions reported. Patient expressed looking forward to discharge and going to drug rehab when there is availability. Patient participated in HS snack prior to bed; observed sleeping and does not appear to be having difficulty. Discharge: Per note: "Clinician will continue to provide support for pt to access inpt substance use programs via [facility]."
[2021-08-08 08:00] VITALS: BP 105/55
[2021-08-08] MEDS: nicotine 21mg patch - 24 hr TD SCH (08:00)
[2021-08-08] MEDS: buPROPion 75mg tablet PO SCH ×2 (08:00→11:08)
--- NOTE | 2021-08-08 08:00 | NUR ---
Discharge Presenting Issues: Per consultation w/attending physician, pt will d/c this morning. Interventions: Clinician met w/pt and engaged him in reviewing of dcp, per session pt will go from hospital to [facility] pharmacy to leaf size picker meds and from there walk to the [facility]. Once at the [facility] pt will ask to meet w/a CM and get support to apply for [place], [employer] & job search assistance. Pt will establish PMD & dental services at the [facility] and see Dr. Case on 08/23. Pt also will continue to call [facility], [facility] & [facility] to access residential SUDs services. Lastly pt will transfer MediCal benefits from [facility] to [facility]. Plan: Pt to d/c today. Meli Iyer LCSW Addendum: 08/08/21 at 0806 by Meli Iyer SS Amended: Links added.
[2021-08-08] MEDS: buprenorphine/naloxone 8MG-2MG SUBlingual film SL SCH (08:01)
[2021-08-08] MEDS: NICOTINE POLACRILEX 2 MG LOZENGE BC PRN (08:12)
[2021-08-08] MEDS ORDERED: BUPR-114 PO (10:25)
[2021-08-08] MEDS ORDERED: HYDR-3686 PO (10:25)
[2021-08-08] MEDS ORDERED: TRAZ-251 PO (10:25)
[2021-08-08] MEDS ORDERED: LORA-269 PO (10:25)
[2021-08-08] MEDS ORDERED: BUPR1FIL3 SL (10:25)
[2021-08-08] MEDS ORDERED: NICO-687 TD (10:25)
[2021-08-08] MEDS: LORazepam 1 MG tablet PO SCH (11:08)
--- NOTE | 2021-08-08 12:35 | NUR ---
Discharge Note: Follow up plan including smoking cessation information reviewed with the patient who is agreeable to discharge. Medications sent to [facility] pharmacy as the patients pharmacy of choice. Escorted off the unit by staff with all of his belongings at 12:35 and is picked up by a cab. Discharged with the following instructions. ABILIFY MAINTENNA 400MG NEXT INJECTION IM ON 09/01/21 Fax packet to [facility] Fax# [phone] and [facility] [phone] Follow-Up: Patient has been scheduled/referred to the following providers for post-hospital discharge and aftercare treatment. Psychiatrist: You are scheduled to see Dr. Case at [facility] on Wednesday 08/23 at 8:15AM Primary Care Provider: You have been referred to [facility] for primary care services. You are encouraged to call [facility] at [phone] to request for primary care services. While you are at the [facility] you can access primary care services at the [facility] (see program flyer in discharge folder). Discharge Address: [facility] [address] Transportation: Cab Patient given community crisis services information and National suicide hotline handout. Resources for education regarding mental illness: [address] [address] For urgent mental health crisis needs please contact Mobile Crisis Outreach Team Saturday through Saturday 8:30am to 5:00pm. . Mobile Crisis Outreach Team [address] [place] [phone] Urgent Out-patient Mental Health Services 365 Days A Year: [address] [address] Hours: Mon thru Fri 12pm-9pm Weekends 11am-9pm
== END 2021-08-08 12:35 | disposition home or self-care (01) | DRG 750 ==
LOC: ADULT MH 09:50
PROVIDERS: ADMIT Psychiatry & Neurology Psychiatry; ATTEND Psychiatry & Neurology Psychiatry
DX: F25.9 Schizoaffective disorder, unspecified (principal); R45.851 Suicidal ideations; F33.8 Other recurrent depressive disorders; F11.90 Opioid use, unspecified, uncomplicated; F15.20 Other stimulant dependence, uncomplicated; F41.9 Anxiety disorder, unspecified; F17.210 Nicotine dependence, cigarettes, uncomplicated; Z81.8 Family history of other mental and behavioral disorders; Z90.81 Acquired absence of spleen; Z59.00 Homelessness unspecified; Z88.0 Allergy status to penicillin; Z79.899 Other long term (current) drug therapy
CPT/HCPCS: 36415; 80061; 83036; 87081; J2426; Q0177